=== PATIENT | female | born 1980 | race Caucasian/White ===

== ENCOUNTER 2018-12-27 21:46 | Observation (INO) | payer MEDICAID, SELFPAY ==
[2018-12-27 21:49] VITALS: BP 138/91; PULSE 111; RESP 24; TEMP 36.9; O2SAT 95; BMI 35.3
[2018-12-27 21:59] VITALS: BP 142/93; PULSE 110; RESP 20; O2SAT 98
--- NOTE | 2018-12-27 22:01 | RAD_ITS ---
STUDY: X-RAY CHEST REASON FOR EXAM: Female, 38 years old. Increasing shortness of breath. History of recent influenza and pneumonia on a ventilator in September 09, 2018. TECHNIQUE: 1 view COMPARISON: None. FINDINGS: Moderate elevation of the right diaphragm with mild atelectatic changes at the right lung base. Otherwise negative for major consolidation or focal atelectasis. Negative for substantial pleural effusion. Normal size heart. Normal mediastinum and masha. Normal visualized pulmonary arteries. Normal visualized aortic arch and descending thoracic aorta. Normal visualized thoracic spine. Normal visualized ribs, clavicles, and shoulders. There is no demonstrated abnormality of the visualized soft tissue structures of the upper abdomen. RAD/Chest 1 View (Portable) IMPRESSION: Moderate elevation of the right diaphragm with mild atelectatic changes at the right lung base. Otherwise negative for major consolidation, focal atelectasis, cardiomegaly or substantial pleural effusion. Electronically Signed: Sylvia Ridley MD at 22:25 EDT , Service support ,
--- NOTE | 2018-12-27 22:01 | EKG12_ITS ---
Test Reason : Blood Pressure : / mmHG Vent. Rate : 105 BPM Atrial Rate : 105 BPM P-R Int : 126 ms QRS Dur : 082 ms QT Int : 344 ms P-R-T Axes : 025 029 037 degrees QTc Int : 454 ms Sinus tachycardia Possible Left atrial enlargement Borderline ECG Confirmed by WALI POLANCO ([id number]), editor farm journal MENDEZ HEADLEY ([id number]) on 12/31/2018 2:04:35 PM Referred By: Lamar Lyon Confirmed By:WALI POLANCO
--- NOTE | 2018-12-27 22:31 | ED.DCSUM_ITS ---
- ER Visit Summary Date of Service: 12/27/18 Chief Complaint: Shortness of breath History of Present Illness: The patient is a 38 F presenting with shortness of breath. Patient states that this has been ongoing and progressively worsening over the past week. She has had a productive cough. She denies fever. Denies chest pain. Patient was admitted in August of this year for influenza in [place]. She developed a secondary pneumonia. She then developed respiratory failure and was on a ventilator. She had a cardiac arrest and was put on ECMO and dialysis. She was trached during the hospitalization. She was admitted for several months. She went to rehab. She was discharged from rehab 2 weeks ago. She has now moved to [place]. She does not have a primary care physician. She has been using someone else's oxygen at home. Her shortness of breath is worsened with exertion. She has a history of asthma. Physical Examination: Vitals are stable. Heart rate 111, respiratory rate 24. Patient is afebrile. Alert no acute distress. HEENT exam is unremarkable. Neck is supple. Lungs are diminished with expiratory wheezing bilaterally. Heart is regular and tachycardic Abdomen is soft nontender nondistended. Extremities are unremarkable. No edema Skin is warm and dry. No focal neurologic deficit. Remainder of exam is unremarkable. Emergency Department Course and Treatment: Patient was given albuterol, Atrovent aerosols. EKG is sinus tachycardia rate of 105. Chest x-ray shows moderate elevation of the right diaphragm with mild atelectatic changes at the right lung base. Otherwise negative for major consolidation, focal atelectasis, cardiomegaly or substantial pleural effusion. CBC normal except hemoglobin 10.7. Chemistries normal except for creatinine 1.26. Troponin is negative. Lactic acid is normal. D-dimer is 0.54. Patient was given IV fluids. CTA chest was obtained and shows grossly negative for pulmonary embolus somewhat limited secondary to motion artifact particularly at the lung bases. Normal thoracic aorta. Shotty lymph nodes of the middle mediastinum, AP window and hilar areas. Volume loss in the right upper lobe with linear areas of atelectasis or scarring in the apex. Nonspecific patchy groundglass changes. Motion artifact at the bases. Negative for substantial area of dense consolidation or pleural effusion. Patient was given Solu-Medrol IV. On repeat evaluation, her lungs are clear to auscultation bilaterally. She is on 2 L nasal cannula oxygen. Discussed with Dr. Lyon for admission. Disposition: Admission Impression: Asthma exacerbation This note was generated with [employer] dictation software. It may contain incorrect words, spelling, and punctuation that were not noted in review of the chart prior to signing ED Disposition - Plan for ED Patient: Referrals: Care Physician,No Primary [Primary Care Provider] -
[2018-12-27 22:43] LABS: Absolute Lymphocyte Count 2.28 X10^3/ul (0.83-4.51); Absolute Neutrophil Count 5.2 X10^3/uL (2.0-7.7); Basophil# 0.04 X10^3/uL; Basophil% 0.5 % (0-1); Eosinophil# 0.27 X10^3/uL; Eosinophils% 3.1 % (0-5); Hematocrit 33.7 % (37-47); Hemoglobin 10.7 g/dl (12.0-15.0); Lymphocyte # 2.28 X10^3/ul (4.0); Lymphocyte % 26.5 % (19-41); Mean Corp Hgb Conc 31.8 g/gl (32-36); Mean Corpuscular Hgb 27.4 pg (27.0-32.0); Mean Corpuscular Volume 86.2 fL (81-99); Mean Platelet Vol. 9.6 fl (6.2-12.0); Monocyte# 0.81 X10^3/uL; Monocyte% 9.4 % (0-10); Neutrophil # 5.18 X10^3/uL (2.7-7.7); Neutrophil % 60.3 % (47-70); Platelet Count 411 K/mm3 (150-450); RBC Distribution Width CV 14.4 % (11.6-14.6); RBC Distribution Width SD 43.8 fl (35.1-43.9); Red Blood Count 3.91 M/mm3 (4.2-5.4); White Blood Count 8.6 K/mm3 (4.4-11.0)
[2018-12-27 22:45] VITALS: PULSE 107; RESP 18
[2018-12-27 22:45] LABS: POSITIVE COUNT NO; POSITIVE DIFFERENTIAL NO; POSITIVE MORPHOLOGY NO
[2018-12-27 22:56] VITALS: BP 125/77; PULSE 99; RESP 18; TEMP 36.9; O2SAT 98
[2018-12-27 22:58] LABS: Anion Gap 6 (5-15); BUN 10 mg/dL (7-18); BUN/Creat Ratio 7.9 RATIO (10-20); Calcium,Total 8.7 mg/dL (8.5-10.1); Chloride 105 mmol/L (98-107); Creatinine, Serum 1.26 mg/dL (0.55-1.02); EST Glomerular Filtration Rate 50 mL/min (>60); Est Glom Filt Rate - Afr Amer 61 mL/min (>60); Estimated Creatinine Clearance 52.28 ml/min; Glucose 111 mg/dL (74-106); Potassium 3.7 mmol/L (3.5-5.1); Sodium Level 137 mmol/L (136-145)
[2018-12-27 23:05] LABS: D-Dimer Quantitative (DVT/PE) 0.54 FEU/ug/m (0.27-0.49)
--- NOTE | 2018-12-27 23:06 | CT_ITS ---
STUDY: CTA CHEST REASON FOR EXAM: Female, 38 years old. Shortness of breath and elevated d-dimer. Recent history of influenza and pneumonia. RADIATION DOSAGE (If Supplied By Facility): CTDIvol = ( 10.28 ) mGy, DLP = ( 482.58 ) mGycm TECHNIQUE: The examination was performed with the intravenous administration of 100ML IV Isovue 370. Post-processing of the angiographic images was performed, with multiplanar reformation and 3D reconstruction. Individualized dose optimization techniques were used for this CT. COMPARISON: None. FINDINGS: Limited for evaluation of the lower lung zone secondary to motion artifact. Normal enhancement of the main pulmonary artery and right and left pulmonary arteries. Normal enhancement of the bilateral peripheral pulmonary arteries. There is no demonstrated pulmonary embolism. Normal thoracic aorta and visualized great vessels. There is no demonstrated aortic dissection. Normal heart and pericardium. Shotty 1 cm lymph nodes of the middle mediastinum and aortopulmonary window. Shotty bilateral hilar lymph nodes. Normal visualized trachea and bronchi. Mild generalized volume loss of the right upper lobe area multiple apical areas of linear scarring or atelectasis of the right upper lobe. Otherwise, patchy mild nonspecific sclerotic areas of groundglass opacity. Limited evaluation of the lung bases secondary to motion artifact. Generally negative for major area of consolidation or pleural effusion. Elevation of the right diaphragm. Normal chest wall structures. Mild degenerative changes of the thoracic spine. Normal visualized upper abdomen. CT/CTA Chest W/WO Contrast IMPRESSION: Grossly negative for pulmonary embolus somewhat limited secondary to motion artifact particularly at the lung bases. Normal thoracic aorta. Shotty lymph nodes of the middle mediastinum, AP window and hilar areas. Volume loss in the right upper lobe with linear areas of atelectasis or scarring in the apex. Nonspecific patchy groundglass changes. Motion artifact at the bases. Negative for substantial area of dense consolidation or pleural effusion. Electronically Signed: Sylvia Ridley MD at 0:01 EDT , Service support ,
[2018-12-27] MEDS: Ipratropium/Albuterol Sulfate 3 ML AMPUL.NEB INHALATION (23:10)
[2018-12-27] MEDS: Albuterol 2.5 MG/3 ML VIAL.NEB. INHALATION ×2 (23:10)
[2018-12-27 23:12] VITALS: PULSE 111; RESP 18
[2018-12-28] VITALS (7 sets, daily range): BP systolic 126–147; BP diastolic 74–93; PULSE 92–114; RESP 18–21; TEMP 36.9–37; O2SAT 88–100; BMI 35.7; BMI 35.8
[2018-12-28] MEDS: 0.9% Normal Saline 1,000 ML 999 ML IV (01:09)
--- NOTE | 2018-12-28 01:18 | HP.PCM_ITS ---
Problem List (1) Asthma exacerbation Status: Acute Qualifiers: Asthma severity: unspecified severity Asthma persistence: unspecified Qualified Code(s): J45.901 - Unspecified asthma with (acute) exacerbation (2) Obesity (BMI 30-39.9) Status: Chronic (3) MAGDALENA (acute kidney injury) Status: Resolved (4) Cardiac arrest Status: Resolved (5) Influenza Status: Resolved (6) Respiratory failure Status: Resolved Qualifiers: Chronicity: unspecified Respiratory failure complication: unspecified whether with hypoxia or hypercapnia Qualified Code(s): J96.90 - Respiratory failure, unspecified, unspecified whether with hypoxia or hypercapnia (7) History of tracheostomy Status: Resolved (8) Personal history of ECMO Status: Resolved History of Present Illness Date of Admission: 12/28/18 Chief Complaint: Dyspnea, cough, wheezing x 1 week. The patient is a 38 y/o F w/ PMHx: Obesity, Asthma with notable history of prolonged admission starting in August of this year secondary to influenza with respiratory failure with subsequent pneumonia requiring prolonged ventilator support complicated by cardiac arrest with placement on the ECMO with noted dialysis needs secondary to acute kidney injury with from history per patient eventual resolution of all these things and transition to rehabilitation for therapies with discharge from this facility in [place] approximately 2 weeks prior to current presentation, recently moved to [place] to live with her cousin noting that she has had ongoing dyspnea, cough not markedly productive with wheezing worsening over the last week, using a friend's oxygen with no home medications but notes she has a nebulizer machine that she has not yet set up. ED work-up included T 98.5, heart rate 111, BP 138/91, respiratory rate 24, 95% on room air, CBC with WBC 8.6, hemoglobin 10.7, platelet 411 without market shift, d-dimer 0.54, BMP with BUN/creatinine 10/1.26, glucose 111, lactic acid 1.0, troponin less than 0.015, EKG with sinus tachycardia with no acute evidence of ischemia, chest x-ray with moderate elevation right diaphragm with mild atelectatic changes at the right base, CTPA grossly negative for acute pulmonary emboli although limited secondary to motion artifact particularly at bases, normal thoracic aorta, shotty lymph nodes of the middle mediastinum, AP window and hilar areas, volume loss right upper lobe with linear areas of atelectasis or scarring in the apex, nonspecific patchy groundglass changes, motion artifact at bases, no evidence of substantial area of dense consolidation or pleural effusion. In the ED patient ministered normal saline, Solu-Medrol, DuoNeb and albuterol therapies. Per discussion with ED physician patient was initially very tachypneic with increased breathing, tight and wheezing on examination with improvement following aerosol therapies. Past Medical History Past Medical History (Chronic Problems): Chronic Problems Obesity (BMI 30-39.9) (Chronic) Allergies No Known Allergies Allergy (Verified 12/27/18 21:53) Home Medications: Ambulatory Orders Medication Instructions Recorded NK 12/27/18 Surgical History: - - Right knee arthroscopic surgery, tonsillectomy, recent tracheostomy and access for ECMO. 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 Smoking Status: Never smoker - Denies any smoking history. Tobacco Use: Non-smoker Alcohol: None Drugs: None - *Family History Maternal History Items: - - Patient states she does not know any of her maternal or paternal family history. Paternal History Items: - - Patient states she does not know any of her maternal or paternal family history. Review of Systems Constitutional: Reports: Malaise, Weakness, Fatigue. Denies: Chills, Fever, Weight Change HEENT: Reports: Post Nasal Drip, Sinus Drainage. Denies: Head Aches Cardiovascular: Denies: Chest Pain, Palpitations Respiratory: Reports: Cough, Shortness of Breath, Shortness of breath at rest, Shortness of breath upon exertion, Sputum production, Wheezing Gastrointestinal: Denies: Abdominal Pain, Nausea, Vomiting Genitourinary: Denies: Dysuria Musculoskeletal: Reports: Back Pain, Joint Pain. Denies: Joint Tenderness Skin: Reports: Skin Changes. Denies: Rash, Wounds Neurological: Denies: Numbness, Tingling, Focal weakness Psychiatric: Denies: Anxiety, Depression, Homicidal Ideations, Suicidal Ideations Hematologic/ Lymphatic: Denies: Easy Bruising, Easy Bleeding VTE Information - Inpt Only VTE Present on Admission: No VTE Mechan Device Prophylaxis: SCD's VTE Pharm Prophylaxis ordered?: Yes Patient Problems: Active and Suspected Problems Asthma exacerbation (Acute) Subjective: Seated upright in the ED bed, fatigued appearance, notes feeling remarkably improved since initial ED interventions, wheezing lessened, respiratory rate decreased. Objective: Physical Examination: General: awake, alert, oriented x 3 and cooperative, seated upright in bed the ED bed, fatigued appearance, respiratory status improved, respiratory rate normalized, wheezing subsided, oxygenation requirements decreased. Skin: normal color, turgor, no icterus, cyanosis. HEENT: AT/NC, EOMI, PERRLA, mildly dry MM, no carotid bruits or JVD noted. Lungs: Diffusely diminished breath sounds, greater bases, improved respiratory status with decreased respiratory rate, previously noted to be very tight and wheezing throughout, currently wheezing resolved, no rales or rhonchi noted. Heart: Regular rate and rhythm; no gallop, rub audible. Abdomen: soft, obese, NTTP, ND, normal BS, no HSM. Extremities: no cyanosis, clubbing, or edema. Neurological: patient awake, alert, oriented x 3; cognitive function intact; pupils equally reactive to light and accomodation; cranial nerves II-XII grossly normal, moving all 4 extremities, no focal deficits, strength severely global decrease secondary to acute presentation. Psychiatric: affect appears fatigued, no acute evidence of depressive or anxiety feelings. - Physical Exam Vital Signs Temp Pulse Resp BP Pulse Ox 98.4 F 111 H 18 125/77 H 98 12/27/18 22:56 12/27/18 23:12 12/27/18 23:12 12/27/18 22:56 12/27/18 22:56 Oxygen Flow Rate (L/min) 2 Oxygen Delivery Method Room Air Weight: 205 lb 14.588 oz Body Mass Index (BMI) 35.3 Laboratory Tests Past 24 Hrs 12/27/18 12/27/18 12/27/18 22:28 22:28 22:28 WBC 8.6 RBC 3.91 L Hgb 10.7 L Hct 33.7 L MCV 86.2 MCH 27.4 MCHC 31.8 L RDW 14.4 RDW Differential 43.8 Plt Count 411 MPV 9.6 Immature Gran % (Auto) 0.200 Neut % (Auto) 60.3 Lymph % (Auto) 26.5 [place] % (Auto) 9.4 Eos % (Auto) 3.1 Baso % (Auto) 0.5 Absolute Neuts (auto) 5.2 Absolute Lymphs (auto) 2.28 Total Counted Not Reportable D-Dimer Quant (PE/DVT) 0.54 H* Sodium 137 Potassium 3.7 Chloride 105 Carbon Dioxide 26.0 Anion Gap 6 BUN 10 Creatinine 1.26 H Estim Creat Clear Calc 52.28 Est GFR (MDRD) Af Amer 61 Est GFR (MDRD) Non-Af 50 L BUN/Creatinine Ratio 7.9 L Glucose 111 H Lactic Acid Calcium 8.7 Troponin I < 0.015 12/27/18 22:28 WBC RBC Hgb Hct MCV MCH MCHC RDW RDW Differential Plt Count MPV Immature Gran % (Auto) Neut % (Auto) Lymph % (Auto) [place] % (Auto) Eos % (Auto) Baso % (Auto) Absolute Neuts (auto) Absolute Lymphs (auto) Total Counted D-Dimer Quant (PE/DVT) Sodium Potassium Chloride Carbon Dioxide Anion Gap BUN Creatinine Estim Creat Clear Calc Est GFR (MDRD) Af Amer Est GFR (MDRD) Non-Af BUN/Creatinine Ratio Glucose Lactic Acid 1.0 Calcium Troponin I Assessment/Plan All Active Problems Asthma exacerbation (Acute) MAGDALENA (acute kidney injury) (Resolved) Cardiac arrest (Resolved) Influenza (Resolved) Respiratory failure (Resolved) History of tracheostomy (Resolved) Personal history of ECMO (Resolved) The patient is a 38 y/o F w/ PMHx: Obesity, Asthma, Recent prolonged admission w/ resp failure, influenza, PNA requiring ECMO w/ eventual trach, MAGDALENA requiring HD w/ transition to rehabilitation ~ 2 weeks prior, recently moved to [place] with ongoing dyspnea, cough not markedly productive with wheezing worsening over the last week. (1) Acute on Chronic Asthma exacerbation completed by recent history of influenza, pneumonia, prolonged ventilation status post trach with ECMO needs: ED work-up included T 98.5, heart rate 111, BP 138/91, respiratory rate 24, 95% on room air, CBC with WBC 8.6, hemoglobin 10.7, platelet 411 without market shift, d-dimer 0.54, BMP with BUN/creatinine 10/1.26, glucose 111, lactic acid 1.0, troponin less than 0.015, EKG with sinus tachycardia with no acute evidence of ischemia, chest x-ray with moderate elevation right diaphragm with mild atelectatic changes at the right base, CTPA grossly negative for acute pulmonary emboli although limited secondary to motion artifact particularly at bases, normal thoracic aorta, shotty lymph nodes of the middle mediastinum, AP window and hilar areas, volume loss right upper lobe with linear areas of atelectasis or scarring in the apex, nonspecific patchy groundglass changes, motion artifact at bases, no evidence of substantial area of dense consolidation or pleural effusion. Will admit to [place], maintain on oxygen with wean as tolerated to room air, continue ATC duonebs, PRN albuterol, IV methylprednisolone, HOB, IS parameters, given afebrile, CBC with no WBC elevation or left shift and suspect CT findings likely secondary to recent prolonged admission will defer antibiotics initially. Requested sputum culture, respiratory viral panel, antigens. Patient will need to establish with pulmonary and given recent pro longed admissions and complicated pulmonary history requested Dr. Fall evaluation of patient. Records requested. (2) Recent MAGDALENA Requiring HD: Resolved per patient, admission BUN/creatinine 05/21.26, gently hydrating, repeat BMP in a.m, records requested as unclear last renal function following discharge to rehab. Records requested. (3) Obesity: Weight loss and lifestyle changes encouraged. (4) DVT Prophylaxis: SCDs, lovenox. Code Visit Inpatient E&M: 04774 Init Hosp L3
[2018-12-28] MEDS: MethylPREDNISolone 125 MG/2 ML Vial IV (01:39)
[2018-12-28 03:01] LABS: Magnesium 1.7 mg/dL (1.6-2.6)
[2018-12-28 03:05] LABS: Bedside Glucose 111 mg/dL (70-110)
[2018-12-28] MEDS: 0.9% Normal Saline 1,000 ML 125 ML IV (03:23)
[2018-12-28] MEDS: guaiFENesin 10 ML UDC (200MG/10ML) 20 ML PO ×2 (05:25→14:21)
[2018-12-28 05:37] LABS: Absolute Lymphocyte Count 0.72 X10^3/ul (0.83-4.51); Absolute Neutrophil Count 7.3 X10^3/uL (2.0-7.7); Basophil# 0.02 X10^3/uL; Basophil% 0.2 % (0-1); Eosinophil# 0.01 X10^3/uL; Eosinophils% 0.1 % (0-5); Hematocrit 35.2 % (37-47); Hemoglobin 10.9 g/dl (12.0-15.0); Lymphocyte # 0.72 X10^3/ul (4.0); Lymphocyte % 8.7 % (19-41); Mean Corpuscular Hgb 26.8 pg (27.0-32.0); Mean Corpuscular Volume 86.7 fL (81-99); Mean Platelet Vol. 9.6 fl (6.2-12.0); Monocyte# 0.19 X10^3/uL; Monocyte% 2.3 % (0-10); Neutrophil # 7.29 X10^3/uL (2.7-7.7); Neutrophil % 88.5 % (47-70); Platelet Count 417 K/mm3 (150-450); RBC Distribution Width CV 14.4 % (11.6-14.6); RBC Distribution Width SD 44.1 fl (35.1-43.9); Red Blood Count 4.06 M/mm3 (4.2-5.4); White Blood Count 8.3 K/mm3 (4.4-11.0)
[2018-12-28 05:38] LABS: POSITIVE COUNT NO; POSITIVE DIFFERENTIAL NO; POSITIVE MORPHOLOGY NO
[2018-12-28 05:58] LABS: Anion Gap 9 (5-15); BUN 9 mg/dL (7-18); BUN/Creat Ratio 6.4 RATIO (10-20); Calcium,Total 8.7 mg/dL (8.5-10.1); Chloride 107 mmol/L (98-107); EST Glomerular Filtration Rate 45 mL/min (>60); Est Glom Filt Rate - Afr Amer 54 mL/min (>60); Estimated Creatinine Clearance 47.05 ml/min; Glucose 135 mg/dL (74-106); Potassium 3.8 mmol/L (3.5-5.1); Sodium Level 139 mmol/L (136-145)
[2018-12-28] MEDS: Ipratropium/Albuterol Sulfate 3 ML AMPUL.NEB INHALATION ×2 (07:02→11:09)
--- NOTE | 2018-12-28 07:09 | PCM.CONS.PUL ---
Reason for Consult Date of Consultation: 12/28/18 Reason for Consultation: Asthma exacerbation History of Present Illness: The patient is a 38-year-old female, with a history as outlined below, who presented to the emergency department on December 27 with complaints of shortness of breath and productive cough. The patient reports a history of asthma, which was initially diagnosed around the age of 15. Up until approximately 2 to 3 weeks ago, the patient was residing in [place]. Sometime in August, the patient became ill and was subsequently diagnosed with influenza. The patient went on to develop a significant respiratory infection and severe hypoxemic respiratory failure, requiring ICU admission. In fact, the patient eventually went on to develop ARDS and required ECMO support. She underwent tracheostomy and spent a total of approximately 3 months in the hospital and in follow-up rehab. She was just decannulated 2 to 3 weeks ago. The patient has since relocated back to [place] to be closer to her family. She is currently using one of her friends inhalers in the form of Dulera. Prior to her most recent acute illness, she reported that her asthma was under good control. Her main complaints are for that of exertional shortness of breath and intermittent wheezing. She denies a history of allergic rhinitis. She does report that cigarette smoke is a trigger for decompensation in her breathing quality. She has never been formally evaluated by a lead software development engineer, nor has she ever undergone pulmonary function testing previously. She is a lifelong non-smoker. On presentation to the emergency department, the patient was noted to be afebrile, tachycardic and tachypneic. Laboratory evaluation revealed no evidence of a leukocytosis. The patient was anemic with a hemoglobin of 10.7 g/dL. D-dimer was elevated to 0.54. Creatinine was increased to 1.26. Serum lactate was within normal limits. Troponin was negative. Plain film chest x-ray revealed evidence of an elevated right hemidiaphragm with associated atelectasis. A CTA chest was then obtained which was negative for the presence for pulmonary emboli. There was nonspecific patchy groundglass changes without radiographic evidence of a significant focal infiltrate. The patient was given supplemental IV fluid hydration. In addition, she was provided with IV Solu-Medrol and bronchodilators. She was subsequently admitted to the medical surgical floor for ongoing management. Past Medical History Past Medical History (Chronic Problems): Chronic Problems Obesity (BMI 30-39.9) (Chronic) Allergies No Known Allergies Allergy (Verified 12/27/18 21:53) Home Medications: Ambulatory Orders Medication Instructions Recorded Albuterol Inhaler [Ventolin Hfa] 1 - 2 puff INHALATION Q4H PRN PRN 12/28/18 #1 inhaler Budesonide/Formoterol Fumarate 2 puff IH BID #1 hfa.aer.ad 12/28/18 [Symbicort 80-4.5 Mcg Inhaler] Prednisone 2 tab PO DAILY #10 tablet 12/28/18 Surgical History: - - Right knee arthroscopic surgery, tonsillectomy, recent tracheostomy and access for ECMO. 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 Smoking Status: Never smoker - Denies any smoking history. Tobacco Use: Non-smoker Alcohol: None Drugs: None - *Family History Maternal History Items: - - Patient states she does not know any of her maternal or paternal family history. Paternal History Items: - - Patient states she does not know any of her maternal or paternal family history. Review of Systems Constitutional: Denies: Chills, Fever Eyes: Denies: Blurred vision, Double vision HEENT: Denies: Head Aches, Sinus Congestion, Sinus Drainage Cardiovascular: Reports: Chest Tightness Respiratory: Reports: Cough, Shortness of Breath, Shortness of breath upon exertion, Wheezing Gastrointestinal: Denies: Abdominal Pain, Nausea, Vomiting Genitourinary: Denies: Dysuria Musculoskeletal: Denies: Joint Pain, Joint Tenderness Skin: Denies: Rash, Wounds Neurological: Denies: Numbness, Tingling, Focal weakness Psychiatric: Reports: Anxiety Hematologic/ Lymphatic: Reports: Anemia Patient Problems: Active and Suspected Problems Asthma exacerbation (Acute) Objective: The patient's most recent lab work, culture data and imaging studies have all been personally reviewed. Strep and urine Legionella antigens were negative. Respiratory viral panel is pending. - Physical Exam General: Alert, Oriented x3, Cooperative, No apparent distress HEENT: Atraumatic, PERRLA, Normocephalic Oral: No Gingival or Mucosal Lesions/ Ulcerations Neck: Supple, No Nodes, Trachea Midline Lungs: - - Diminished air movement in the bases bilaterally, right greater than left. No appreciable wheezes, rales or rhonchi. Cardiovascular: Regular rate, Regular Rhythm, Normal S1, Normal S2, No murmurs Abdomen: Bowel Sounds Present, Soft, Non Tender, Obese Extremities: No clubbing, No cyanosis, No edema Skin: No breakdown Musculoskeletal: No Tenderness to Palpation of Joints or Extremities Lymphatic: No Cervical, Supraclavicular, or Inguinal Adenopathy Neurological: Cranial nerves II-XII grossly intact, Neuro grossly intact Psych/Mental Status: Normal Affect, Appropriate Vital Signs Temp Pulse Resp BP Pulse Ox 98.6 F 96 18 130/87 H 100 12/28/18 02:35 12/28/18 02:35 12/28/18 02:35 12/28/18 02:35 12/28/18 02:35 Oxygen Flow Rate (L/min) 2 Oxygen Delivery Method Nasal Cannula Weight: 208 lb 6 oz Body Mass Index (BMI) 35.7 Intake and Output for Last 24 Hours 12/26/18 12/27/18 12/28/18 23:59 23:59 23:59 Intake Total 452 / 452 Balance 452 / 452 Microbiology Past 72 Hours 12/28/18 04:00 Streptococcus pneumoniae Antigen (M - Final Urine, Clean Catch 12/28/18 04:00 Legionella Antigen - Final Urine, Clean Catch Laboratory Tests Past 24 Hrs 12/27/18 12/27/18 12/27/18 22:28 22:28 22:28 WBC 8.6 RBC 3.91 L Hgb 10.7 L Hct 33.7 L MCV 86.2 MCH 27.4 MCHC 31.8 L RDW 14.4 RDW Differential 43.8 Plt Count 411 MPV 9.6 Immature Gran % (Auto) 0.200 Neut % (Auto) 60.3 Lymph % (Auto) 26.5 [place] % (Auto) 9.4 Eos % (Auto) 3.1 Baso % (Auto) 0.5 Absolute Neuts (auto) 5.2 Absolute Lymphs (auto) 2.28 Total Counted Not Reportable D-Dimer Quant (PE/DVT) 0.54 H* Sodium 137 Potassium 3.7 Chloride 105 Carbon Dioxide 26.0 Anion Gap 6 BUN 10 Creatinine 1.26 H Estim Creat Clear Calc 52.28 Est GFR (MDRD) Af Amer 61 Est GFR (MDRD) Non-Af 50 L BUN/Creatinine Ratio 7.9 L Glucose 111 H Lactic Acid Calcium 8.7 Magnesium Troponin I < 0.015 12/27/18 12/27/18 12/28/18 22:28 22:28 05:20 WBC RBC Hgb Hct MCV MCH MCHC RDW RDW Differential Plt Count MPV Immature Gran % (Auto) Neut % (Auto) Lymph % (Auto) [place] % (Auto) Eos % (Auto) Baso % (Auto) Absolute Neuts (auto) Absolute Lymphs (auto) Total Counted D-Dimer Quant (PE/DVT) Sodium 139 Potassium 3.8 Chloride 107 Carbon Dioxide 23.0 Anion Gap 9 BUN 9 Creatinine 1.40 H Estim Creat Clear Calc 47.05 Est GFR (MDRD) Af Amer 54 L Est GFR (MDRD) Non-Af 45 L BUN/Creatinine Ratio 6.4 L Glucose 135 H Lactic Acid 1.0 Calcium 8.7 Magnesium 1.7 Troponin I 12/28/18 05:20 WBC 8.3 RBC 4.06 L Hgb 10.9 L Hct 35.2 L MCV 86.7 MCH 26.8 L MCHC 31.0 L RDW 14.4 RDW Differential 44.1 H Plt Count 417 MPV 9.6 Immature Gran % (Auto) 0.200 Neut % (Auto) 88.5 H Lymph % (Auto) 8.7 L [place] % (Auto) 2.3 Eos % (Auto) 0.1 Baso % (Auto) 0.2 Absolute Neuts (auto) 7.3 Absolute Lymphs (auto) 0.72 L Total Counted Not Reportable D-Dimer Quant (PE/DVT) Sodium Potassium Chloride Carbon Dioxide Anion Gap BUN Creatinine Estim Creat Clear Calc Est GFR (MDRD) Af Amer Est GFR (MDRD) Non-Af BUN/Creatinine Ratio Glucose Lactic Acid Calcium Magnesium Troponin I POC Glucose 12/28/18 02:57 POC Glucose 111 H Clinical Impression(s) from Imaging Studies Chest X-Ray 12/27/18 22:01 IMPRESSION: Moderate elevation of the right diaphragm with mild atelectatic changes at the right lung base. Otherwise negative for major consolidation, focal atelectasis, cardiomegaly or substantial pleural effusion. Electronically Signed: Sylvia Ridley MD at 22:25 EDT , Service support , Chest CTA 12/27/18 23:06 IMPRESSION: Grossly negative for pulmonary embolus somewhat limited secondary to motion artifact particularly at the lung bases. Normal thoracic aorta. Shotty lymph nodes of the middle mediastinum, AP window and hilar areas. Volume loss in the right upper lobe with linear areas of atelectasis or scarring in the apex. Nonspecific patchy groundglass changes. Motion artifact at the bases. Negative for substantial area of dense consolidation or pleural effusion. Electronically Signed: Sylvia Ridley MD at 0:01 EDT , Service support , Assessment/Plan All Active Problems Asthma exacerbation (Acute) MAGDALENA (acute kidney injury) (Resolved) Cardiac arrest (Resolved) Influenza (Resolved) Respiratory failure (Resolved) History of tracheostomy (Resolved) Personal history of ECMO (Resolved) RECOMMENDATIONS: 1. Continue bronchodilators as ordered. 2. Transition from IV steroids to prednisone 40 mg daily, with plans for a 5-day burst at discharge. 3. At discharge, please provide with prescriptions for Symbicort and as needed albuterol. 4. Perform walking oximetry study prior to consideration for discharge from the hospital. 5. Follow-up in the pulmonary medicine clinic next week on Monday at 1:15 PM, as scheduled. IMPRESSIONS: 1. Personal history of asthma with exacerbation The patient reports a history of asthma, initially diagnosed at the age of 15. She recently relocated here to the area following a prolonged hospitalization in [place], during which time, she was treated for ARDS secondary to influenza and actually required ECMO support. The patient did require eventual tracheostomy. However, she was decannulated 2 to 3 weeks ago. At this time, I do not suspect that the patient has an underlying pulmonary infectious process. I do think that it is reasonable to give the patient 5 mg of prednisone 40 mg daily at discharge. She does report that she is currently utilizing Dulera, which belongs to a friend of hers. At discharge, please provide the patient with a prescription for Symbicort and and as needed rescue inhaler. Perform walking oximetry study prior to consideration for discharge to ensure adequacy of oxygenation with exertion. I explained to the patient the importance of following up in the pulmonary medicine clinic so that baseline pulmonary function studies can be obtained. She is currently scheduled for a follow-up office visit on January 02 at 1:15 PM. 2. Personal history of ARDS secondary to influenza, requiring ECMO support Some of the radiographic findings noted on the patient's CT chest are likely the consequence of her recent pulmonary infectious process. I am also concerned that the patient may have an underlying component of posttraumatic stress disorder or anxiety from her prolonged ICU stay. 3. History of renal insufficiency, requiring hemodialysis Renal function appears stable at this time. Continue to monitor urine output accordingly. This note was generated with [employer] dictation software. It may contain incorrect words, spelling, and punctuation that were not noted in checking the note before signing. Code Visit Inpatient E&M: 79690 Init Hosp L3
--- NOTE | 2018-12-28 07:13 | CON.PCM_ITS ---
Reason for Consult Date of Consultation: 12/28/18 Reason for Consultation: Asthma exacerbation History of Present Illness: The patient is a 38-year-old female, with a history as outlined below, who presented to the emergency department on December 27 with complaints of shortness of breath and productive cough. The patient reports a history of asthma, which was initially diagnosed around the age of 15. Up until approximately 2 to 3 weeks ago, the patient was residing in [place]. Sometime in August, the patient became ill and was subsequently diagnosed with influenza. The patient went on to develop a significant respiratory infection and severe hypoxemic respiratory failure, requiring ICU admission. In fact, the patient eventually went on to develop ARDS and required ECMO support. She underwent tracheostomy and spent a total of approximately 3 months in the hospital and in follow-up rehab. She was just decannulated 2 to 3 weeks ago. The patient has since relocated back to [place] to be closer to her family. She is currently using one of her friends inhalers in the form of Dulera. Prior to her most recent acute illness, she reported that her asthma was under good control. Her main complaints are for that of exertional shortness of breath and intermittent wheezing. She denies a history of allergic rhinitis. She does report that cigarette smoke is a trigger for decompensation in her breathing quality. She has never been formally evaluated by a red hat engineer, nor has she ever undergone pulmonary function testing previously. She is a lifelong non-smoker. On presentation to the emergency department, the patient was noted to be afebrile, tachycardic and tachypneic. Laboratory evaluation revealed no evidence of a leukocytosis. The patient was anemic with a hemoglobin of 10.7 g/dL. D-dimer was elevated to 0.54. Creatinine was increased to 1.26. Serum lactate was within normal limits. Troponin was negative. Plain film chest x- ray revealed evidence of an elevated right hemidiaphragm with associated atelectasis. A CTA chest was then obtained which was negative for the presence for pulmonary emboli. There was nonspecific patchy groundglass changes without radiographic evidence of a significant focal infiltrate. The patient was given supplemental IV fluid hydration. In addition, she was provided with IV Solu- Medrol and bronchodilators. She was subsequently admitted to the medical surgical floor for ongoing management. Past Medical History Past Medical History (Chronic Problems): Chronic Problems Obesity (BMI 30-39.9) (Chronic) Allergies No Known Allergies Allergy (Verified 12/27/18 21:53) Home Medications: Ambulatory Orders Medication Instructions Recorded Albuterol Inhaler [Ventolin Hfa] 1 - 2 puff INHALATION Q4H PRN PRN 12/28/18 #1 inhaler Budesonide/Formoterol Fumarate 2 puff IH BID #1 hfa.aer.ad 12/28/18 [Symbicort 80-4.5 Mcg Inhaler] Prednisone 2 tab PO DAILY #10 tablet 12/28/18 Surgical History: - - Right knee arthroscopic surgery, tonsillectomy, recent tracheostomy and access for ECMO. 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 Smoking Status: Never smoker - Denies any smoking history. Tobacco Use: Non-smoker Alcohol: None Drugs: None - *Family History Maternal History Items: - - Patient states she does not know any of her maternal or paternal family history. Paternal History Items: - - Patient states she does not know any of her maternal or paternal family history. Review of Systems Constitutional: Denies: Chills, Fever Eyes: Denies: Blurred vision, Double vision HEENT: Denies: Head Aches, Sinus Congestion, Sinus Drainage Cardiovascular: Reports: Chest Tightness Respiratory: Reports: Cough, Shortness of Breath, Shortness of breath upon exertion, Wheezing Gastrointestinal: Denies: Abdominal Pain, Nausea, Vomiting Genitourinary: Denies: Dysuria Musculoskeletal: Denies: Joint Pain, Joint Tenderness Skin: Denies: Rash, Wounds Neurological: Denies: Numbness, Tingling, Focal weakness Psychiatric: Reports: Anxiety Hematologic/ Lymphatic: Reports: Anemia Patient Problems: Active and Suspected Problems Asthma exacerbation (Acute) Objective: The patient's most recent lab work, culture data and imaging studies have all been personally reviewed. Strep and urine Legionella antigens were negative. Respiratory viral panel is pending. - Physical Exam General: Alert, Oriented x3, Cooperative, No apparent distress HEENT: Atraumatic, PERRLA, Normocephalic Oral: No Gingival or Mucosal Lesions/ Ulcerations Neck: Supple, No Nodes, Trachea Midline Lungs: - - Diminished air movement in the bases bilaterally, right greater than left. No appreciable wheezes, rales or rhonchi. Cardiovascular: Regular rate, Regular Rhythm, Normal S1, Normal S2, No murmurs Abdomen: Bowel Sounds Present, Soft, Non Tender, Obese Extremities: No clubbing, No cyanosis, No edema Skin: No breakdown Musculoskeletal: No Tenderness to Palpation of Joints or Extremities Lymphatic: No Cervical, Supraclavicular, or Inguinal Adenopathy Neurological: Cranial nerves II-XII grossly intact, Neuro grossly intact Psych/Mental Status: Normal Affect, Appropriate Vital Signs Temp Pulse Resp BP Pulse Ox 98.6 F 96 18 130/87 H 100 12/28/18 02:35 12/28/18 02:35 12/28/18 02:35 12/28/18 02:35 12/28/18 02:35 Oxygen Flow Rate (L/min) 2 Oxygen Delivery Method Nasal Cannula Weight: 208 lb 6 oz Body Mass Index (BMI) 35.7 Intake and Output for Last 24 Hours 12/26/18 12/27/18 12/28/18 23:59 23:59 23:59 Intake Total 452 / 452 Balance 452 / 452 Microbiology Past 72 Hours 12/28/18 04:00 Streptococcus pneumoniae Antigen (M - Final Urine, Clean Catch 12/28/18 04:00 Legionella Antigen - Final Urine, Clean Catch Laboratory Tests Past 24 Hrs 12/27/18 12/27/18 12/27/18 22:28 22:28 22:28 WBC 8.6 RBC 3.91 L Hgb 10.7 L Hct 33.7 L MCV 86.2 MCH 27.4 MCHC 31.8 L RDW 14.4 RDW Differential 43.8 Plt Count 411 MPV 9.6 Immature Gran % (Auto) 0.200 Neut % (Auto) 60.3 Lymph % (Auto) 26.5 [place] % (Auto) 9.4 Eos % (Auto) 3.1 Baso % (Auto) 0.5 Absolute Neuts (auto) 5.2 Absolute Lymphs (auto) 2.28 Total Counted Not Reportable D-Dimer Quant (PE/DVT) 0.54 H* Sodium 137 Potassium 3.7 Chloride 105 Carbon Dioxide 26.0 Anion Gap 6 BUN 10 Creatinine 1.26 H Estim Creat Clear Calc 52.28 Est GFR (MDRD) Af Amer 61 Est GFR (MDRD) Non-Af 50 L BUN/Creatinine Ratio 7.9 L Glucose 111 H Lactic Acid Calcium 8.7 Magnesium Troponin I < 0.015 12/27/18 12/27/18 12/28/18 22:28 22:28 05:20 WBC RBC Hgb Hct MCV MCH MCHC RDW RDW Differential Plt Count MPV Immature Gran % (Auto) Neut % (Auto) Lymph % (Auto) [place] % (Auto) Eos % (Auto) Baso % (Auto) Absolute Neuts (auto) Absolute Lymphs (auto) Total Counted D-Dimer Quant (PE/DVT) Sodium 139 Potassium 3.8 Chloride 107 Carbon Dioxide 23.0 Anion Gap 9 BUN 9 Creatinine 1.40 H Estim Creat Clear Calc 47.05 Est GFR (MDRD) Af Amer 54 L Est GFR (MDRD) Non-Af 45 L BUN/Creatinine Ratio 6.4 L Glucose 135 H Lactic Acid 1.0 Calcium 8.7 Magnesium 1.7 Troponin I 12/28/18 05:20 WBC 8.3 RBC 4.06 L Hgb 10.9 L Hct 35.2 L MCV 86.7 MCH 26.8 L MCHC 31.0 L RDW 14.4 RDW Differential 44.1 H Plt Count 417 MPV 9.6 Immature Gran % (Auto) 0.200 Neut % (Auto) 88.5 H Lymph % (Auto) 8.7 L [place] % (Auto) 2.3 Eos % (Auto) 0.1 Baso % (Auto) 0.2 Absolute Neuts (auto) 7.3 Absolute Lymphs (auto) 0.72 L Total Counted Not Reportable D-Dimer Quant (PE/DVT) Sodium Potassium Chloride Carbon Dioxide Anion Gap BUN Creatinine Estim Creat Clear Calc Est GFR (MDRD) Af Amer Est GFR (MDRD) Non-Af BUN/Creatinine Ratio Glucose Lactic Acid Calcium Magnesium Troponin I POC Glucose 12/28/18 02:57 POC Glucose 111 H Clinical Impression(s) from Imaging Studies Chest X-Ray 12/27/18 22:01 IMPRESSION: Moderate elevation of the right diaphragm with mild atelectatic changes at the right lung base. Otherwise negative for major consolidation, focal atelectasis, cardiomegaly or substantial pleural effusion. Electronically Signed: Sylvia Ridley MD at 22:25 EDT , Service support , Chest CTA 12/27/18 23:06 IMPRESSION: Grossly negative for pulmonary embolus somewhat limited secondary to motion artifact particularly at the lung bases. Normal thoracic aorta. Shotty lymph nodes of the middle mediastinum, AP window and hilar areas. Volume loss in the right upper lobe with linear areas of atelectasis or scarring in the apex. Nonspecific patchy groundglass changes. Motion artifact at the bases. Negative for substantial area of dense consolidation or pleural effusion. Electronically Signed: Sylvia Ridley MD at 0:01 EDT , Service support , Assessment/Plan All Active Problems Asthma exacerbation (Acute) MAGDALENA (acute kidney injury) (Resolved) Cardiac arrest (Resolved) Influenza (Resolved) Respiratory failure (Resolved) History of tracheostomy (Resolved) Personal history of ECMO (Resolved) RECOMMENDATIONS: 1. Continue bronchodilators as ordered. 2. Transition from IV steroids to prednisone 40 mg daily, with plans for a 5- day burst at discharge. 3. At discharge, please provide with prescriptions for Symbicort and as needed albuterol. 4. Perform walking oximetry study prior to consideration for discharge from the hospital. 5. Follow-up in the pulmonary medicine clinic next week on Monday at 1:15 PM, as scheduled. IMPRESSIONS: 1. Personal history of asthma with exacerbation The patient reports a history of asthma, initially diagnosed at the age of 15. She recently relocated here to the area following a prolonged hospitalization in [place], during which time, she was treated for ARDS secondary to influenza and actually required ECMO support. The patient did require eventual tracheostomy. However, she was decannulated 2 to 3 weeks ago. At this time, I do not suspect that the patient has an underlying pulmonary infectious process. I do think that it is reasonable to give the patient 5 mg of prednisone 40 mg daily at discharge. She does report that she is currently utilizing Dulera, which belongs to a friend of hers. At discharge, please provide the patient with a prescription for Symbicort and and as needed rescue inhaler. Perform walking oximetry study prior to consideration for discharge to ensure adequacy of oxygenation with exertion. I explained to the patient the importance of following up in the pulmonary medicine clinic so that baseline pulmonary function studies can be obtained. She is currently scheduled for a follow-up office visit on January 02 at 1:15 PM. 2. Personal history of ARDS secondary to influenza, requiring ECMO support Some of the radiographic findings noted on the patient's CT chest are likely the consequence of her recent pulmonary infectious process. I am also concerned that the patient may have an underlying component of posttraumatic stress disorder or anxiety from her prolonged ICU stay. 3. History of renal insufficiency, requiring hemodialysis Renal function appears stable at this time. Continue to monitor urine output accordingly. This note was generated with [email or web address] dictation software. It may contain incorrect words, spelling, and punctuation that were not noted in checking the note before signing. Code Visit Inpatient E&M: 21273 Init Hosp L3
[2018-12-28] MEDS: Glucerna Shake 120 ML LIQUID PO (10:08)
[2018-12-28] MEDS: Enoxaparin 40 MG/0.4 ML Syringe SC (10:08)
--- NOTE | 2018-12-28 10:48 | DCINST_ITS ---
- Discharge Diagnoses Current Active Problems: Current Active and Chronic Problems Asthma exacerbation (Acute) Obesity (BMI 30-39.9) (Chronic) You will use the following diet at home:: No restrictions Discharge Activity: Return to Normal Activity Allergies/Adverse Reactions: Allergies No Known Allergies Allergy (Verified 12/27/18 21:53) Medications to take at Discharge Albuterol Inhaler [Ventolin Hfa] 1 - 2 puff INHALATION Q4H PRN PRN #1 inhaler 12/28/18 Budesonide/Formoterol Fumarate [Symbicort 80-4.5 Mcg Inhaler] 2 puff IH BID #1 hfa.aer.ad 12/28/18 Prednisone 2 tab PO DAILY #10 tablet 12/28/18 The following prescriptions were given: Albuterol Inhaler [Ventolin Hfa] 1 - 2 puff INHALATION Q4H PRN PRN #1 inhaler PRN Reason: Shortness Of Breath Prednisone 2 tab PO DAILY #10 tablet Budesonide/Formoterol Fumarate [Symbicort 80-4.5 Mcg Inhaler] 2 puff IH BID #1 hfa.aer.ad Primary Care Physician: Care Physician,No Primary [Primary Care Provider] - Test Results: Test results from this visit will be discussed in further detail at your follow- up appointment, if applicable. Please Follow Up With: Kevyn Jiménez MD When: 2 weeks Please Follow Up With: Dipak Fall DO When: 01/02/19 at 1:15 Proposed Discharge Date: 12/28/18
--- NOTE | 2018-12-28 10:48 | PCM.DC.SUM ---
Discharge Date and Diagnosis - Problem List Patient Problems: Active and Suspected Problems Asthma exacerbation (Acute) Date of Admission: 12/28/18 Date of Discharge: 12/28/18 - Primary Discharge Diagnosis Active and Suspected Problems Asthma exacerbation (Acute) - Secondary Discharge Diagnosis Chronic Problems Obesity (BMI 30-39.9) (Chronic) Hospital Course and Treatment Imaging Results: Clinical Impression(s) from Imaging Studies Chest X-Ray 12/27/18 22:01 IMPRESSION: Moderate elevation of the right diaphragm with mild atelectatic changes at the right lung base. Otherwise negative for major consolidation, focal atelectasis, cardiomegaly or substantial pleural effusion. Electronically Signed: Sylvia Ridley MD at 22:25 EDT , Service support , Chest CTA 12/27/18 23:06 IMPRESSION: Grossly negative for pulmonary embolus somewhat limited secondary to motion artifact particularly at the lung bases. Normal thoracic aorta. Shotty lymph nodes of the middle mediastinum, AP window and hilar areas. Volume loss in the right upper lobe with linear areas of atelectasis or scarring in the apex. Nonspecific patchy groundglass changes. Motion artifact at the bases. Negative for substantial area of dense consolidation or pleural effusion. Electronically Signed: Sylvia Ridley MD at 0:01 EDT , Service support , Dipak Fall, DO: pulmonology Operations: None Procedures: None Summary of Care Provided: The patient is a 38 year old F presents with acute shortness of breath. Patient was diagnosed with acute exacerbation of asthma and started on Solu-Medrol. Patient's hospitalization was uncomplicated and today, the patient is doing well enough to be discharged. Patient does have a complicated history where the patient developed what may have been influenza that devolved into ARDS, requiring ECMO, prone positioning and tracheostomy and PEG tube placement. Patient was in the hospital for 2 months and then rehab a month later and then had a while she was in rehab had her PEG tube and tracheostomy removed. Patient was in [place] at that time but most recently, patient has been brought up to [place] to have care with family as patient just had herself up in the [place] area. Patient was seen in consultation by pulmonology and just recommend just steroids for now and follow-up in their office. [] Patient Problems: Active and Suspected Problems Asthma exacerbation (Acute) - Physical Exam General: Alert, Cooperative, No apparent distress HEENT: Atraumatic, Normocephalic Oral: Moist Mucosa, No Gingival or Mucosal Lesions/ Ulcerations Lungs: Clear to auscultation, Normal air movement, No rhonchi, No wheeze Cardiovascular: Regular rate, Regular Rhythm, Normal S1, Normal S2, No murmurs Vital Signs Temp Pulse Resp BP Pulse Ox 36.9 C 114 H 18 126/84 H 98 12/28/18 10:03 12/28/18 10:03 12/28/18 10:03 12/28/18 10:03 12/28/18 10:03 Oxygen Flow Rate (L/min) 1 Oxygen Delivery Method Nasal Cannula Weight: 94.517 kg Body Mass Index (BMI) 35.7 Intake and Output for Last 24 Hours 12/26/18 12/27/18 12/28/18 23:59 23:59 23:59 Intake Total 452 / 452 Balance 452 / 452 Microbiology Past 72 Hours 12/28/18 04:00 Streptococcus pneumoniae Antigen (M - Final Urine, Clean Catch 12/28/18 04:00 Legionella Antigen - Final Urine, Clean Catch Laboratory Tests Past 24 Hrs 12/27/18 12/27/18 12/27/18 22:28 22:28 22:28 WBC 8.6 RBC 3.91 L Hgb 10.7 L Hct 33.7 L MCV 86.2 MCH 27.4 MCHC 31.8 L RDW 14.4 RDW Differential 43.8 Plt Count 411 MPV 9.6 Immature Gran % (Auto) 0.200 Neut % (Auto) 60.3 Lymph % (Auto) 26.5 [place] % (Auto) 9.4 Eos % (Auto) 3.1 Baso % (Auto) 0.5 Absolute Neuts (auto) 5.2 Absolute Lymphs (auto) 2.28 Total Counted Not Reportable D-Dimer Quant (PE/DVT) 0.54 H* Sodium 137 Potassium 3.7 Chloride 105 Carbon Dioxide 26.0 Anion Gap 6 BUN 10 Creatinine 1.26 H Estim Creat Clear Calc 52.28 Est GFR (MDRD) Af Amer 61 Est GFR (MDRD) Non-Af 50 L BUN/Creatinine Ratio 7.9 L Glucose 111 H Lactic Acid Calcium 8.7 Magnesium Troponin I < 0.015 12/27/18 12/27/18 12/28/18 22:28 22:28 05:20 WBC RBC Hgb Hct MCV MCH MCHC RDW RDW Differential Plt Count MPV Immature Gran % (Auto) Neut % (Auto) Lymph % (Auto) [place] % (Auto) Eos % (Auto) Baso % (Auto) Absolute Neuts (auto) Absolute Lymphs (auto) Total Counted D-Dimer Quant (PE/DVT) Sodium 139 Potassium 3.8 Chloride 107 Carbon Dioxide 23.0 Anion Gap 9 BUN 9 Creatinine 1.40 H Estim Creat Clear Calc 47.05 Est GFR (MDRD) Af Amer 54 L Est GFR (MDRD) Non-Af 45 L BUN/Creatinine Ratio 6.4 L Glucose 135 H Lactic Acid 1.0 Calcium 8.7 Magnesium 1.7 Troponin I 12/28/18 05:20 WBC 8.3 RBC 4.06 L Hgb 10.9 L Hct 35.2 L MCV 86.7 MCH 26.8 L MCHC 31.0 L RDW 14.4 RDW Differential 44.1 H Plt Count 417 MPV 9.6 Immature Gran % (Auto) 0.200 Neut % (Auto) 88.5 H Lymph % (Auto) 8.7 L [place] % (Auto) 2.3 Eos % (Auto) 0.1 Baso % (Auto) 0.2 Absolute Neuts (auto) 7.3 Absolute Lymphs (auto) 0.72 L Total Counted Not Reportable D-Dimer Quant (PE/DVT) Sodium Potassium Chloride Carbon Dioxide Anion Gap BUN Creatinine Estim Creat Clear Calc Est GFR (MDRD) Af Amer Est GFR (MDRD) Non-Af BUN/Creatinine Ratio Glucose Lactic Acid Calcium Magnesium Troponin I POC Glucose 12/28/18 02:57 POC Glucose 111 H Discharge Diet: No Restrictions Discharge Activity: Return to Normal Activity Call your doctor if you observe: Shortness of breath Home Medications: Medications to take at Discharge Albuterol Inhaler [Ventolin Hfa] 1 - 2 puff INHALATION Q4H PRN PRN #1 inhaler 12/28/18 Budesonide/Formoterol Fumarate [Symbicort 80-4.5 Mcg Inhaler] 2 puff IH BID #1 hfa.aer.ad 12/28/18 Prednisone 2 tab PO DAILY #10 tablet 12/28/18 Following Prescrptions Were Given to Patient: Albuterol Inhaler [Ventolin Hfa] 1 - 2 puff INHALATION Q4H PRN PRN #1 inhaler PRN Reason: Shortness Of Breath Prednisone 2 tab PO DAILY #10 tablet Budesonide/Formoterol Fumarate [Symbicort 80-4.5 Mcg Inhaler] 2 puff IH BID #1 hfa.aer.ad Primary Care Physician: Care Physician,No Primary [Primary Care Provider] - Please Follow Up With: Kevyn Jiménez MD When: 2 weeks Please Follow Up With: Dipak Fall DO When: 01/02/19 at 1:15 Disposition: Home Minutes spent on discharge:: 32 Patient Condition:: Good Medical Necessity - Tobacco Use Smoking Status: Never smoker - Denies any smoking history. Tobacco Use: Non-smoker Meaningful Use Info Meaningful Use Diagnoses (Choose all that apply): None applicable Code Visit OBSV E&M: 97251 Observation care discharge
--- NOTE | 2018-12-28 10:53 | DS.PCM_ITS ---
Discharge Date and Diagnosis - Problem List Patient Problems: Active and Suspected Problems Asthma exacerbation (Acute) Date of Admission: 12/28/18 Date of Discharge: 12/28/18 - Primary Discharge Diagnosis Active and Suspected Problems Asthma exacerbation (Acute) - Secondary Discharge Diagnosis Chronic Problems Obesity (BMI 30-39.9) (Chronic) Hospital Course and Treatment Imaging Results: Clinical Impression(s) from Imaging Studies Chest X-Ray 12/27/18 22:01 IMPRESSION: Moderate elevation of the right diaphragm with mild atelectatic changes at the right lung base. Otherwise negative for major consolidation, focal atelectasis, cardiomegaly or substantial pleural effusion. Electronically Signed: Sylvia Ridley MD at 22:25 EDT , Service support , Chest CTA 12/27/18 23:06 IMPRESSION: Grossly negative for pulmonary embolus somewhat limited secondary to motion artifact particularly at the lung bases. Normal thoracic aorta. Shotty lymph nodes of the middle mediastinum, AP window and hilar areas. Volume loss in the right upper lobe with linear areas of atelectasis or scarring in the apex. Nonspecific patchy groundglass changes. Motion artifact at the bases. Negative for substantial area of dense consolidation or pleural effusion. Electronically Signed: Sylvia Ridley MD at 0:01 EDT , Service support , Dipak Fall, DO: pulmonology Operations: None Procedures: None Summary of Care Provided: The patient is a 38 year old F presents with acute shortness of breath. Patient was diagnosed with acute exacerbation of asthma and started on Solu-Medrol. Patient's hospitalization was uncomplicated and today, the patient is doing well enough to be discharged. Patient does have a complicated history where the patient developed what may have been influenza that devolved into ARDS, requiring ECMO, prone positioning and tracheostomy and PEG tube placement. Patient was in the hospital for 2 months and then rehab a month later and then had a while she was in rehab had her PEG tube and tracheostomy removed. Patient was in [place] at that time but most recently, patient has been brought up to [place] to have care with family as patient just had herself up in the [place] area. Patient was seen in consultation by pulmonology and just recommend just steroids for now and follow-up in their office. [] Patient Problems: Active and Suspected Problems Asthma exacerbation (Acute) - Physical Exam General: Alert, Cooperative, No apparent distress HEENT: Atraumatic, Normocephalic Oral: Moist Mucosa, No Gingival or Mucosal Lesions/ Ulcerations Lungs: Clear to auscultation, Normal air movement, No rhonchi, No wheeze Cardiovascular: Regular rate, Regular Rhythm, Normal S1, Normal S2, No murmurs Vital Signs Temp Pulse Resp BP Pulse Ox 36.9 C 114 H 18 126/84 H 98 12/28/18 10:03 12/28/18 10:03 12/28/18 10:03 12/28/18 10:03 12/28/18 10:03 Oxygen Flow Rate (L/min) 1 Oxygen Delivery Method Nasal Cannula Weight: 94.517 kg Body Mass Index (BMI) 35.7 Intake and Output for Last 24 Hours 12/26/18 12/27/18 12/28/18 23:59 23:59 23:59 Intake Total 452 / 452 Balance 452 / 452 Microbiology Past 72 Hours 12/28/18 04:00 Streptococcus pneumoniae Antigen (M - Final Urine, Clean Catch 12/28/18 04:00 Legionella Antigen - Final Urine, Clean Catch Laboratory Tests Past 24 Hrs 12/27/18 12/27/18 12/27/18 22:28 22:28 22:28 WBC 8.6 RBC 3.91 L Hgb 10.7 L Hct 33.7 L MCV 86.2 MCH 27.4 MCHC 31.8 L RDW 14.4 RDW Differential 43.8 Plt Count 411 MPV 9.6 Immature Gran % (Auto) 0.200 Neut % (Auto) 60.3 Lymph % (Auto) 26.5 [place] % (Auto) 9.4 Eos % (Auto) 3.1 Baso % (Auto) 0.5 Absolute Neuts (auto) 5.2 Absolute Lymphs (auto) 2.28 Total Counted Not Reportable D-Dimer Quant (PE/DVT) 0.54 H* Sodium 137 Potassium 3.7 Chloride 105 Carbon Dioxide 26.0 Anion Gap 6 BUN 10 Creatinine 1.26 H Estim Creat Clear Calc 52.28 Est GFR (MDRD) Af Amer 61 Est GFR (MDRD) Non-Af 50 L BUN/Creatinine Ratio 7.9 L Glucose 111 H Lactic Acid Calcium 8.7 Magnesium Troponin I < 0.015 12/27/18 12/27/18 12/28/18 22:28 22:28 05:20 WBC RBC Hgb Hct MCV MCH MCHC RDW RDW Differential Plt Count MPV Immature Gran % (Auto) Neut % (Auto) Lymph % (Auto) [place] % (Auto) Eos % (Auto) Baso % (Auto) Absolute Neuts (auto) Absolute Lymphs (auto) Total Counted D-Dimer Quant (PE/DVT) Sodium 139 Potassium 3.8 Chloride 107 Carbon Dioxide 23.0 Anion Gap 9 BUN 9 Creatinine 1.40 H Estim Creat Clear Calc 47.05 Est GFR (MDRD) Af Amer 54 L Est GFR (MDRD) Non-Af 45 L BUN/Creatinine Ratio 6.4 L Glucose 135 H Lactic Acid 1.0 Calcium 8.7 Magnesium 1.7 Troponin I 12/28/18 05:20 WBC 8.3 RBC 4.06 L Hgb 10.9 L Hct 35.2 L MCV 86.7 MCH 26.8 L MCHC 31.0 L RDW 14.4 RDW Differential 44.1 H Plt Count 417 MPV 9.6 Immature Gran % (Auto) 0.200 Neut % (Auto) 88.5 H Lymph % (Auto) 8.7 L [place] % (Auto) 2.3 Eos % (Auto) 0.1 Baso % (Auto) 0.2 Absolute Neuts (auto) 7.3 Absolute Lymphs (auto) 0.72 L Total Counted Not Reportable D-Dimer Quant (PE/DVT) Sodium Potassium Chloride Carbon Dioxide Anion Gap BUN Creatinine Estim Creat Clear Calc Est GFR (MDRD) Af Amer Est GFR (MDRD) Non-Af BUN/Creatinine Ratio Glucose Lactic Acid Calcium Magnesium Troponin I POC Glucose 12/28/18 02:57 POC Glucose 111 H Discharge Diet: No Restrictions Discharge Activity: Return to Normal Activity Call your doctor if you observe: Shortness of breath Home Medications: Medications to take at Discharge Albuterol Inhaler [Ventolin Hfa] 1 - 2 puff INHALATION Q4H PRN PRN #1 inhaler 12/28/18 Budesonide/Formoterol Fumarate [Symbicort 80-4.5 Mcg Inhaler] 2 puff IH BID #1 hfa.aer.ad 12/28/18 Prednisone 2 tab PO DAILY #10 tablet 12/28/18 Following Prescrptions Were Given to Patient: Albuterol Inhaler [Ventolin Hfa] 1 - 2 puff INHALATION Q4H PRN PRN #1 inhaler PRN Reason: Shortness Of Breath Prednisone 2 tab PO DAILY #10 tablet Budesonide/Formoterol Fumarate [Symbicort 80-4.5 Mcg Inhaler] 2 puff IH BID #1 hfa.aer.ad Primary Care Physician: Care Physician,No Primary [Primary Care Provider] - Please Follow Up With: Kevyn Jiménez MD When: 2 weeks Please Follow Up With: Dipak Fall DO When: 01/02/19 at 1:15 Disposition: Home Minutes spent on discharge:: 32 Patient Condition:: Good Medical Necessity - Tobacco Use Smoking Status: Never smoker - Denies any smoking history. Tobacco Use: Non-smoker Meaningful Use Info Meaningful Use Diagnoses (Choose all that apply): None applicable Code Visit OBSV E&M: 98289 Observation care discharge
--- NOTE | 2018-12-28 11:31 | CASEMGMT ---
RN WILEY received update that patient requires oxygen at discharge and nebulizer. DIMPLE JAMA in to discuss DME companies and patient is agreeable to [facility]. Script received for oxygen and nebulizer and referral sent to [facility]. DIMPLE JAMA arranged for portable tank to be delivered to patient's room prior to discharge. Patient denied further needs at this time.
--- NOTE | 2018-12-28 14:15 | PCA ---
consent signed for release of medical records, faxed to [facility], [facility] in [facility] main line: [phone] fax number [phone]
== END 2018-12-28 14:51 | disposition home or self-care (01) ==
LOC: ED 22:39 → MS3 12-28 02:08
PROVIDERS: Admitting Provider Family Medicine; Emergency Provider Emergency Medicine; Referring Provider Family Medicine
DX: J45.901 Unspecified asthma with (acute) exacerbation (principal); E66.9 Obesity, unspecified; Z68.35 Body mass index [BMI] 35.0-35.9, adult; Z71.3 Dietary counseling and surveillance; Z86.74 Personal history of sudden cardiac arrest
CPT/HCPCS: 36415; 71045; 71275; 80048; 82962; 83605; 83735; 84484; 85025; 85379; 87449; 87633; 93005; 94640; 94667; 96361; 96372; 96374; 96376; 99218; 99285; J7030; Q9967; A4216; G0378

== ENCOUNTER → 2019-01-29 | Outpatient (CLI) | payer MEDICAID, SELFPAY ==
[2019-01-02 13:40] VITALS: BMI 35.7
[2019-01-29 12:30] VITALS: PULSE 100; PULSE 108; PULSE 116; PULSE 119; PULSE 120; PULSE 123; O2SAT 92; O2SAT 93; O2SAT 95; O2SAT 97
--- NOTE | 2019-01-29 13:18 | CPS ---
Pt SOB for the whole 6 min test, pt unable to complete 6 min walk and stopped at 5 minutes due to having increased SOB. Pt wears 2L O2 @home, [employer] is the home care [employer]. Pt was on RA for the entire test, SpO2 stayed above 88%.
--- NOTE | 2019-01-29 14:54 | WT_ITS ---
PSN 6 Minute Walk Test - 6 Minute Walk Test 6 Minute Walk Test: 6 Minute Walk Test PSN:6-Minute Walk Test Start: 01/29/19 13:15 Freq: Status: Active Protocol: [id number] Document 01/29/19 12:30 HG (Rec: 01/29/19 13:22 HG [id number]) 6 Minute Walk Test Date Performed 01/29/19 Time Performed 12:30 Height 5 ft 4 in Weight: 98.883 kg Weight in Pounds 218.[address]: Tara Sanders Assistive device used: Cane Pre-test Oxygen Delivery Method Room Air Pulse Ox (%) 97 Pulse Rate (60-100 beats/min) 100 Dyspnea Edd Scale (0-10) 3 Exertion Edd Scale (6-20) 11 1st minute Oxygen Delivery Method Room Air Pulse Ox (%) 93 Pulse Rate (60-100 beats/min) 116 H Reported Symptoms Increased Work of Breathing 2nd minute Oxygen Delivery Method Room Air Pulse Ox (%) 92 Pulse Rate (60-100 beats/min) 119 H Reported Symptoms Increased Work of Breathing 3rd minute Oxygen Delivery Method Room Air Pulse Ox (%) 92 Pulse Rate (60-100 beats/min) 119 H Reported Symptoms Increased Work of Breathing 4th minute Oxygen Delivery Method Room Air Pulse Ox (%) 92 Pulse Rate (60-100 beats/min) 123 H Reported Symptoms Increased Work of Breathing 5th minute Oxygen Delivery Method Room Air Pulse Ox (%) 93 Pulse Rate (60-100 beats/min) 120 H Reported Symptoms Increased Work of Breathing Post-test Oxygen Delivery Method Room Air Pulse Ox (%) 95 Pulse Rate (60-100 beats/min) 108 H Dyspnea Edd Scale (0-10) 5 Exertion Edd Scale (6-20) 14 Reported Symptoms Increased Work of Breathing Full Laps Walked 7 Partial Lap, Number of Tiles Walked 0 Total Distance Walked (ft) 413 01/29/19 13:18 Cardiopulmonary Services by Ana Laura England Pt SOB for the whole 6 min test, pt unable to complete 6 min walk and stopped at 5 minutes due to having increased SOB. Pt wears 2L O2 @home, [employer] is the home care [employer]. Pt was on RA for the entire test, SpO2 stayed above 88%. Initialized on 01/29/19 13:18 - END OF NOTE - Interpretation Interpretation: The patient was able to ambulate only 413 feet over the course of 6 minutes on room air with the assistance of a cane. The patient did have significant desaturation from a baseline of 97% to as low as 92%. Tachycardia was noted throughout testing with a peak heart rate of 123 bpm. These findings are consistent with a respiratory limitation exercise tolerance. - Recommendations Recommendations: No supplemental oxygen is indicated at this time, but patient will need to be followed closely given level of desaturation.
== END | disposition home or self-care (01) ==
LOC: PSN 12:36
PROVIDERS: Family Provider Family Medicine; PCP Family Medicine; Referring Provider Nurse Practitioner Acute Care; Visit Provider Nurse Practitioner Acute Care
DX: J45.901 Unspecified asthma with (acute) exacerbation (principal)
CPT/HCPCS: 94618

== ENCOUNTER → 2019-02-05 | Outpatient (CLI) | payer MEDICAID, SELFPAY ==
[2019-01-02 13:40] VITALS: BMI 35.7
[2019-02-05 10:50] LABS: Absolute Lymphocyte Count 2.44 X10^3/ul (0.83-4.51); Absolute Neutrophil Count 5.8 X10^3/uL (2.0-7.7); Basophil# 0.04 X10^3/uL; Basophil% 0.4 % (0-1); Eosinophil# 0.24 X10^3/uL; Eosinophils% 2.6 % (0-5); Hematocrit 37.3 % (37-47); Hemoglobin 11.5 g/dl (12.0-15.0); Lymphocyte # 2.44 X10^3/ul (4.0); Lymphocyte % 26.8 % (19-41); Mean Corp Hgb Conc 30.8 g/gl (32-36); Mean Corpuscular Hgb 25.9 pg (27.0-32.0); Mean Platelet Vol. 9.9 fl (6.2-12.0); Monocyte# 0.61 X10^3/uL; Monocyte% 6.7 % (0-10); Neutrophil # 5.76 X10^3/uL (2.7-7.7); Neutrophil % 63.2 % (47-70); Platelet Count 392 K/mm3 (150-450); RBC Distribution Width CV 14.9 % (11.6-14.6); Red Blood Count 4.44 M/mm3 (4.2-5.4); White Blood Count 9.1 K/mm3 (4.4-11.0)
[2019-02-05 10:54] LABS: POSITIVE COUNT NO; POSITIVE DIFFERENTIAL NO; POSITIVE MORPHOLOGY NO
--- NOTE | 2019-02-07 07:59 | PFT ---
INTRODUCTION: The patient is a 38-year-old female that presents for pulmonary function studies secondary to a diagnosis of asthma. Respiratory therapy reports good patient effort. Bronchodilators were used during testing. INTERPRETATION: Forced expiration spirometry demonstrates no evidence of a large airways obstructive ventilatory defect. There was a significant response to aerosolized bronchodilators noted. Spirograms are of good quality and plateau normally. Body plethysmography was performed and reveals a decreased TLC to 3.26 L, 64% of predicted, indicative of a moderate restrictive ventilatory impairment. The remainder of the lung volumes are symmetrically reduced. Diffusing capacity by single breath CO is symmetrically reduced at 43% of predicted. IMPRESSION: Moderate restrictive ventilatory impairment with symmetric reduction in diffusing capacity. The patient did have a positive bronchodilator response.
[2019-02-09 20:06] LABS: Alternaria alternata <0.10 kU/L (Class 0); Aspirgillus flavus Negative (Neg:<1:1); Aspirgillus fumigatus Negative (Neg:<1:1); Aspirgillus niger Negative (Neg:<1:1); Bermuda Grass <0.10 kU/L (Class 0); Bluegrass, Kentucky <0.10 kU/L (Class 0); Cat Hair/Dander, Standard 0.32 kU/L (Class I); D farinae Mite 0.42 kU/L (Class I); D pteronyssinus 0.44 kU/L (Class I); Dog Epithelia <0.10 kU/L (Class 0); Elm, American White <0.10 kU/L (Class 0); Oak, White <0.10 kU/L (Class 0); Plantain, English <0.10 kU/L (Class 0); Ragweed, Short/Common <0.10 kU/L (Class 0)
[2019-02-11 11:24] LABS: Mouse Urine <0.10 kU/L (Class 0)
[2019-02-11 11:25] LABS: Immunoglobulin E 12 IU/mL (6-495)
== END | disposition home or self-care (01) ==
PROVIDERS: Family Provider Family Medicine; PCP Family Medicine; Referring Provider Nurse Practitioner Acute Care; Visit Provider Nurse Practitioner Acute Care
DX: J45.901 Unspecified asthma with (acute) exacerbation (principal)
CPT/HCPCS: 36415; 82785; 85025; 86003; 86606; 94060; 94726; 94729

== ENCOUNTER 2019-02-28 11:00 | Outpatient (RCR) | payer MEDICAID, SELFPAY ==
[2019-01-02 13:40] VITALS: BMI 35.7
--- NOTE | 2019-01-30 09:52 | HP.PTEVAL ---
Patient's Visit Information ELIZABETH MARTIN is a 38 year old F referred to Physical Therapy by Kevyn Jiménez MD with a diagnosis of Bilateral LE weakness and SOB. Date of Evaluation: 01/30/19 Physical Therapist: Heather Otero DPT - Visit Plan Frequency: 3x /Week Duration: 4 Weeks Plan: Focus on LE and core strength/stabilization. Caution SOB- wears 2L O2 - Subjective Findings: Patient reports that she is trying to booste up her lungs and strengthen her legs. Had the flu and put her in a coma back in August- spent 3 months in medical facilities in [facility]. Was in 2 hospitals on full life support. Had a lot of muscle loss and the top of the legs are numb. Feels like her legs are pretty weak at times and feels a little wobbly. Came back to [place] at the end of November- had no help in [place] so she had to come home. Fully I prior to this but was using a cane due to leg weakness- did work until the weakness started about 2 years ago. Plans to be living indpendently soon- single story with a set up steps to get in with no HR currently but they will be putting one in. No pain is associated with this but does get sharp pains for a few seconds in the top of both legs. Unsure of what aggravates the pain- feels like a stab is both legs. Has had a lot of images. Is currently on 2 L of 02 and they are still trying to figure out whats going on with her lungs. 2L at all times. Sleep: no problems. PMHx: right knee surgery clean out, leg weakness. Meds: none- inhalers as needed. Does not drive - Objective Posture: FH, RS- can correct but does not maintain. Gait: no deviation noted but does have SOB after approx 300 feet- wearing O2 and uses SC. Stairs: asc: recip with 1 HR and cane- desc: non recip with right LE leading with cane and 1 HR- had to stop at top of stairs to catch breath. HR/TR: with UE A able but reports fatigue after 3 of each. SLS: WS but unable to SLS for more than 2 seconds with LOB and reports of instability. ROM: WFL in all planes. Sensation: diminished to gross light touch over anterior thigh bilateral. Reflex: WNL in patellas bilaterally. Strength: Core: poor, Hip: 4/5 throughout, Knee: 4+/5, Ankle: 5/5 bilaterally - Goals Goal 1:: Patient will be I with HEP and progression Goal Time Frame: 4-6 Weeks Goal 2:: Patient will ambulate >300 feet with no AD and a normalized gait pattern with no SOB Goal Time Frame: 4-6 Weeks Goal 3:: Patient will SLS for 15 seconds without LOB Goal Time Frame: 4-6 Weeks Goal 4:: Patient will demo 4+/5 strength in LE where deficit Goal Time Frame: 4-6 Weeks Goal 5:: Patient will maintain proper posture t/o tx session to demo increased core s/s Goal Time Frame: 4-6 Weeks - Rehabilitation Potential Physical Therapy Diagnosis: Patient presents with hypomobility- she has decreased strength and muscular endurance leading to decreased ability to perform ADL's. Rehabilitation Potential: Fair - Anticipated Interventions Patient/Client Instruction: Educate patient on: Benefits of Fitness Program Therapeutic Exercise to Include: Strength training, Endurance training, Balance training, Coordination, Agility training, Body mechanics, Postural training, Flexibilty training, Gait and locomotor training, Passive ROM, Active ROM, Dynamic Lumbar Stabilization For the Purpose of:: To improve muscle performance and motor function Functional Training to Include: Gait training Thank you for the opportunity to evaluate your patient. For Medicare and Medicare HMO plans, please review the plan of care and approve it. It will need to be FAXED BACK to us at [phone] for Medicare purposes. For Medicare only, by signing this I certify the plan of care. Please let me know if there are questions or concerns regarding this plan of care. Physician Signature: Date:
--- NOTE | 2019-02-28 11:23 | HP.PTDCSUM ---
HP - PT D/C Summary It has been my pleasure to treat ELIZABETH MARTIN under orders from Kevyn Jiménez MD, for the diagnosis of Bilateral LE weakness and SOB for a total of 8 visit(s). Discharge Date: Please see the following information for a summary of their discharge status. - Subjective Subjective: Patient reports that walking around is getting better- only using the cane for community ambulation. Does have front steps at home and she is able to asc/desc then without issues. Does not go out much. Breathing comes and goes. Moved into her own place so she is now doing more on her own. 50% better. Wants to work through building endurance on her own- does not feel that she needs to continue therapy. No pain. 2L at all times- Follow up with pulmonology 03/13/19. - Overall Improvement % Improvement: 50 - Objective Objective/Function: Posture: FH, RS- can correct and maintain in a hard back chair but is challenged without support Gait: no deviation noted without AD- reports SOB but PT did not notice symptoms of SOB after 300 feet Stairs: asc: recip with 1 HR HR/TR: with UE A able x30 SLS: 15 seconds each with increased muscle activation. ROM: WFL in all planes. Sensation: diminished to gross light touch over anterior thigh bilateral. Reflex: WNL in patellas bilaterally. Strength: Core: fair, Hip: 4+/5 throughout, Knee: 5/5, Ankle: 5/5 bilaterally - Goals Goal 1:: Patient will be I with HEP and progression Goal Progress: Goal Met Goal 2:: Patient will ambulate >300 feet with no AD and a normalized gait pattern with no SOB Goal Progress: Progressing Goal 3:: Patient will SLS for 15 seconds without LOB Goal Progress: Progressing Goal 4:: Patient will demo 4+/5 strength in LE where deficit Goal Progress: Progressing Goal 5:: Patient will maintain proper posture t/o tx session to demo increased core s/s Goal Progress: Progressing - Plan Plan: Discharge to I HEP- encouraged compliance with HEP- increasing mobility through walking and to call if any questions of concerns. - D/C Information If there are questions or concerns regarding this patient's physical therapy, please feel free to call me at [phone]. Thank you for the referral of this patient. Sincerely, Heather Otero DPT
== END 2019-02-28 11:33 | disposition home or self-care (01) ==
LOC: PT 11:00
PROVIDERS: Family Provider Family Medicine; PCP Family Medicine; Referring Provider Family Medicine; Visit Provider Family Medicine
DX: R29.898 Other symptoms and signs involving the musculoskeletal system (principal); M51.36 Other intervertebral disc degeneration, lumbar region
CPT/HCPCS: 97110; 97161; 97164; 97530

== ENCOUNTER → 2019-03-12 | Outpatient (CLI) | payer MEDICAID, SELFPAY ==
[2019-01-02 13:40] VITALS: BMI 35.7
--- NOTE | 2019-03-12 08:33 | RAD_ITS ---
STUDY: X-RAY - LUMBAR SPINE REASON FOR EXAM: Female, 38 years old. Low back pain TECHNIQUE: 5 view(s) of the lumbar spine were obtained. COMPARISON: None FINDINGS: Normal lumbar lordosis. There is no substantial scoliosis. There is a normal alignment of the vertebrae. Normal vertebral bodies and endplates. Normal disc space heights except for narrowing at L5/S1. There is no demonstrated fracture. The soft tissue structures are unremarkable. RAD/L/S Spine Min 4 Views IMPRESSION: Degenerative changes at L5/S1, otherwise unremarkable lumbar spine Electronically Signed: Dwain Whitfield MD at 9:27 EDT , Service support ,
[2019-03-12 10:10] LABS: Absolute Neutrophil Count 5.3 X10^3/uL (2.0-7.7); Basophil# 0.08 X10^3/uL; Eosinophil# 0.26 X10^3/uL; Eosinophils% 3.2 % (0-5); Hematocrit 39.1 % (37-47); Lymphocyte % 23.1 % (19-41); Mean Corp Hgb Conc 30.7 g/dL (32-36); Mean Corpuscular Hgb 26.2 pg (27.0-32.0); Mean Corpuscular Volume 85.4 fL (81-99); Monocyte# 0.61 X10^3/uL; Monocyte% 7.4 % (0-10); NRBC Flagged by Analyzer 0 % (0-5); Neutrophil # 5.34 X10^3/uL (2.7-7.7); Neutrophil % 64.9 % (47-70); Platelet Count 379 K/mm3 (150-450); RBC Distribution Width CV 15.1 % (11.6-14.6); RBC Distribution Width SD 47.5 fl (35.1-43.9); Red Blood Count 4.58 M/mm3 (4.2-5.4); White Blood Count 8.2 K/mm3 (4.4-11.0)
[2019-03-12 10:20] LABS: Erythrocyte Sedimentation Rate 29 mm/hr (0-20)
[2019-03-12 10:23] LABS: ALB/GLOB Ratio 0.8 RATIO (0.9-2.4); AST(SGOT) 15 U/L (15-37); Alanine Aminotransfer ALT/SGPT 26 U/L (13-56); Albumin, Serum 3.5 g/dL (3.2-5.0); Alkaline Phosphatase 101 U/L (45-117); Anion Gap 7 (5-15); BUN 16 mg/dL (7-18); BUN/Creat Ratio 12.9 RATIO (10-20); Calcium,Total 9.2 mg/dL (8.5-10.1); Chloride 106 mmol/L (98-107); Creatinine, Serum 1.24 mg/dL (0.55-1.02); EST Glomerular Filtration Rate 51 mL/min (>60); Est Glom Filt Rate - Afr Amer 62 mL/min (>60); Ferritin 30 ng/mL (8-252); Globulin 4.2 g/dL (2.2-4.2); Glucose 96 mg/dL (74-106); Iron 44 ug/dL (50-170); Potassium 4.7 mmol/L (3.5-5.1); Protein, Total 7.7 g/dL (6.4-8.2); Sodium Level 140 mmol/L (136-145); Thyroid Stim Hormone (TSH) 2.96 uIU/mL (0.358-3.74)
[2019-03-12 10:25] LABS: Vitamin B12 540 pg/mL (211-911); Vitamin D,25 Hydroxy 16.3 ng/mL (29.95-100.01)
[2019-03-14 09:16] LABS: ANTINUCLEAR ANTIBODIES DIRECT Negative (Negative)
== END | disposition home or self-care (01) ==
PROVIDERS: Family Provider Family Medicine; PCP Family Medicine; Referring Provider Family Medicine; Visit Provider Family Medicine
DX: R20.0 Anesthesia of skin (principal); M51.36 Other intervertebral disc degeneration, lumbar region; N28.9 Disorder of kidney and ureter, unspecified
CPT/HCPCS: 36415; 72110; 80053; 82306; 82607; 82728; 83540; 84443; 85025; 85652; 86038; 86140

== ENCOUNTER → 2019-04-19 | Outpatient (CLI) | payer MEDICAID, SELFPAY ==
[2019-03-27 13:34] VITALS: BMI 37.4
--- NOTE | 2019-04-19 13:01 | ECHOCS_ITS ---
Reason For Study: DYSPNEA Procedure This was a 2D Doppler, Color Flow transthoracic echocardiogram. The study was technically difficult. Contrast injection was performed. Exam performed in department. Left Ventricle Normal LV size. Left ventricular systolic function is normal. The estimated ejection fraction is 65 %. No evidence for diastolic dysfunction. No regional wall motion abnormalities noted. Right Ventricle Normal RV size. Normal systolic function. Atria Normal left atrium. Normal right atrium. No doppler evidence for ASD. Mitral Valve There is no mitral annular calcification. Normal mitral valve. Trivial mitral valve insufficiency. Tricuspid Valve Normal tricuspid valve. Trivial tricuspid valve insufficiency. Unable to estimate RV systolic pressure/pulmonary artery pressure due to technically difficult study. Aortic Valve Trisinus/trileaflet aortic valve. Normal aortic valve. Pulmonic Valve The pulmonic valve is not well visualized. Trivial pulmonic valve insufficiency. Great Vessels Normal sized aortic root. Pericardium/Pleural No pericardial effusion. Medication 22 gauge I.V. with prn adaptor inserted into right arm. Diluted definity 3ml given slow IV push to enhance endocardial definition. MMode/2D Measurements & Calculations LVIDd: 3.8 cm IVSd: 0.89 cm Ao root diam: 2.8 cm LVIDs: 2.2 cm LVPWd: 0.90 cm RVDd: 2.5 cm FS: 41.4 % LAV(MOD-bp): 28.8 ml LA A4 area: 11.4 cm2 LA dimension(2D): 3.6 cm LAV(MOD-bp) Indexed: 14.0 ml/m2 LAV(MOD-sp2): 31.4 ml LAV(MOD-sp4): 25.4 ml RA A4 area: 7.8 cm2 Time Measurements MV dec time: 0.19 sec Doppler Measurements & Calculations MV E max rome: 83.2 cm/sec Lat Peak E' [place]: 12.6 cm/sec Med Peak E' [place]: 8.9 cm/sec MV A max rome: 76.7 cm/sec E/E' lat: 6.6 E/E' med: 9.3 MV E/A: 1.1 Ao V2 max: 143.1 cm/sec LV V1 max: 126.5 cm/sec PA V2 max: 136.8 cm/sec Ao max P.2 mmHg LV V1 max P.4 mmHg PI end-d rome: 91.9 cm/sec Interpretation Summary The study was technically difficult. Contrast injection was performed. Left ventricular systolic function is normal. The estimated ejection fraction is 65 %. Trivial mitral valve insufficiency. Trivial tricuspid valve insufficiency. Trivial pulmonic valve insufficiency. Unable to estimate RV systolic pressure/pulmonary artery pressure due to technically difficult study. No evidence for diastolic dysfunction. Ordering Physician: Dipak Fall Referring Physician: ALANNAH POE Performed By: Kaila Carrera RDCS, RVT
--- NOTE | 2019-04-19 13:56 | CT_ITS ---
STUDY: CT CHEST WITHOUT CONTRAST REASON FOR EXAM: Female, 38 years old. Dyspnea, restrictive airway disease RADIATION DOSAGE (If Supplied By Facility): CTDIvol = ( 14.80 ) mGy, DLP = ( 384.42 ) mGycm TECHNIQUE: Transaxial imaging was performed without the administration of intravenous contrast material. Individualized dose optimization techniques were used for this CT. COMPARISON: 27 Dec 2018 FINDINGS: Examination is limited due to lack of dedicated pulmonary protocol. This is a standard CT chest with limited ability to evaluate for airway or restrictive disease. Diagnostic information is available. Inspiratory volumes are low. There are scattered predominantly peripheral subpleural increased markings and faint groundglass densities, a nonspecific pattern most likely related to atelectasis and fixed right upper lobe scarring. There is a small number of subpleural small cysts in the left lower lung, all measuring less than 3 cm. Central airways are patent. There is no bronchiectasis. There is no nodular, cystic or fibrotic disease. Mediastinal contents are normal. Esophagus is normal. Cardiac chamber is normal in size and shape. Pericardium is normal. There is massively increased body habitus with extrathoracic lipomatosis. Pulmonary artery and aorta are normal. Osseous structures are intact without chest wall restrictive disease. Appearance is similar to recent prior. CT/Chest without Contrast IMPRESSION: 1. Limited evaluation due to nondedicated protocol. 2. No specific pulmonary diagnosis, mild atelectasis and minimal scarring. However, uncommon presentations of disease, such as sarcoidosis, is possible. 3. No pulmonary arterial hypertension. 4. Extrathoracic lipomatosis and elevated BMI. No chest wall restrictive disease. Electronically Signed: Cher Whitaker, at 17:16 EDT Tel , Service support ,
== END | disposition home or self-care (01) ==
PROVIDERS: Family Provider Family Medicine; PCP Family Medicine; Referring Provider Internal Medicine Critical Care Medicine; Visit Provider Internal Medicine Critical Care Medicine
DX: J98.4 Other disorders of lung (principal); R06.00 Dyspnea, unspecified; R06.02 Shortness of breath
CPT/HCPCS: 71250; 93306; Q9957; A4216; C8929

== ENCOUNTER → 2019-06-10 | Outpatient (CLI) | payer MEDICAID, SELFPAY ==
[2019-05-20 07:57] VITALS: BMI 38.6
[2019-06-10 17:37] LABS: Absolute Lymphocyte Count 2.83 X10^3/uL (0.83-4.51); Absolute Neutrophil Count 6.3 X10^3/uL (2.0-7.7); Basophil# 0.06 X10^3/uL; Basophil% 0.6 % (0-1); Eosinophil# 0.24 X10^3/uL; Eosinophils% 2.3 % (0-5); Hematocrit 41.2 % (37-47); Hemoglobin 12.7 g/dL (12.0-15.0); Lymphocyte # 2.83 X10^3/ul (4.0); Lymphocyte % 27.4 % (19-41); Mean Corp Hgb Conc 30.8 g/dL (32-36); Mean Corpuscular Hgb 27.5 pg (27.0-32.0); Mean Corpuscular Volume 89.2 fL (81-99); Mean Platelet Vol. 10.8 fl (6.2-12.0); Monocyte# 0.84 X10^3/uL; Monocyte% 8.1 % (0-10); NRBC Flagged by Analyzer 0 % (0-5); Neutrophil # 6.31 X10^3/uL (2.7-7.7); Neutrophil % 61.3 % (47-70); Platelet Count 376 K/mm3 (150-450); RBC Distribution Width CV 14.6 % (11.6-14.6); RBC Distribution Width SD 47.3 fl (35.1-43.9); Red Blood Count 4.62 M/mm3 (4.2-5.4); White Blood Count 10.3 K/mm3 (4.4-11.0)
[2019-06-10 17:47] LABS: Erythrocyte Sedimentation Rate 41 mm/hr (0-20)
[2019-06-10 17:52] LABS: Vitamin D,25 Hydroxy 29.6 ng/mL (29.95-100.01)
[2019-06-10 18:00] LABS: Anion Gap 8 (5-15); BUN 14 mg/dL (7-18); Calcium,Total 8.9 mg/dL (8.5-10.1); Chloride 103 mmol/L (98-107); Creatinine, Serum 1.17 mg/dL (0.55-1.02); EST Glomerular Filtration Rate 55 mL/min (>60); Est Glom Filt Rate - Afr Amer 66 mL/min (>60); Ferritin 40 ng/mL (8-252); Glucose 84 mg/dL (74-106); Iron 55 ug/dL (50-170); Iron Binding Capacity,Total 371 ug/dL (250-450); PERCENT IRON SATURATION 14.8 % (15.0-55.0); Potassium 4.4 mmol/L (3.5-5.1); Sodium Level 139 mmol/L (136-145); Thyroid Stim Hormone (TSH) 2.62 uIU/mL (0.358-3.74)
== END | disposition home or self-care (01) ==
LOC: MFPLAB 15:34
PROVIDERS: Family Provider Family Medicine; PCP Family Medicine; Referring Provider Family Medicine; Visit Provider Family Medicine
DX: D64.9 Anemia, unspecified (principal); N28.9 Disorder of kidney and ureter, unspecified; R25.2 Cramp and spasm; E55.9 Vitamin D deficiency, unspecified
CPT/HCPCS: 36415; 80048; 82306; 82728; 82746; 83540; 83550; 83735; 84443; 85025; 85652

== ENCOUNTER → 2019-06-13 | Outpatient (CLI) | payer MEDICAID, SELFPAY ==
[2019-05-20 07:57] VITALS: BMI 38.6
[2019-06-13 14:51] LABS: Mucous, Urine 0 SEEN /hpf (<or=2+); Red Blood Cells-Urine 0 SEEN /hpf (0-5); White Blood Cells 0 SEEN /hpf (0-5)
[2019-06-13 15:48] LABS: Color, Urine Yellow (Yellow); Glucose, Dipstick Normal (Normal); Ketone-Dipstick Negative (Negative); Leukocyte Esterase-Dipstick Negative /ul (Negative); Nitrite-Dipstick Negative (Negative); Occult Blood-Urine Negative /ul (Negative); Protein-Dipstick Negative (Negative); Specific Gravity, Urine 1.015 (1.002-1.030); Urine Bilirubin Dipstick Negative (Negative); Urine Clarity Sl. Cloudy (Clear); Urine Urobilinogen Normal (Normal); Urine pH 6.5 (5.0 - 8.0)
[2019-06-13 15:58] LABS: Bacteria RARE /hpf (None Seen); Squamous Epithelial Cells - UA 0-5 SEEN /hpf (5-10)
== END | disposition home or self-care (01) ==
LOC: LABSPEC 14:47
PROVIDERS: Family Provider Family Medicine; PCP Family Medicine; Referring Provider Family Medicine; Visit Provider Family Medicine
DX: N28.9 Disorder of kidney and ureter, unspecified (principal)
CPT/HCPCS: 81001

== ENCOUNTER → 2019-06-25 | Outpatient (CLI) | payer MEDICAID, SELFPAY ==
[2019-05-20 07:57] VITALS: BMI 38.6
--- NOTE | 2019-06-25 08:18 | RAD_ITS ---
STUDY: AIR CONTRAST UPPER GI SERIES REASON FOR EXAM: Female, 38 years old. Dysphagia. FLUOROSCOPY TIME (if supplied): (0:49) minutes/seconds TECHNIQUE: SINGLE CONTRAST AND AIR CONTRAST FLUOROSCOPIC IMAGES. COMPARISON: None. FINDINGS: The cervical esophagus demonstrates normal motility without aspiration. There is no stricture or extrinsic mass effect. No intraluminal polypoid mass is identified. The thoracic esophagus distends well without stricture or mucosal fold thickening. No mucosal ulcerations are identified. There is no extrinsic mass effect. There are no diverticula. Small sliding hiatal hernia with gastroesophageal reflux. The stomach distends well without mucosal fold thickening or mucosal ulceration. There is no intraluminal mass. The duodenal bulb is freely distensible without deformity or ulceration. The duodenal sweep is normal in position and caliber. RAD/Upper GI w/BA Swallow IMPRESSION: Small sliding hiatal hernia with gastroesophageal reflux. Electronically Signed: Leobardo Recinos, at 13:30 EST , Service support ,
== END | disposition home or self-care (01) ==
LOC: RAD 08:17
PROVIDERS: Family Provider Family Medicine; PCP Family Medicine; Referring Provider Nurse Practitioner Acute Care; Visit Provider Nurse Practitioner Acute Care
DX: Z98.890 Other specified postprocedural states (principal)
CPT/HCPCS: 74246

== ENCOUNTER → 2019-07-10 19:57 | Outpatient (CLI) | payer MEDICAID, SELFPAY ==
[2019-05-20 07:57] VITALS: BMI 38.6
== END ==
PROVIDERS: Family Provider Family Medicine; PCP Family Medicine; Referring Provider Nurse Practitioner Acute Care; Visit Provider Nurse Practitioner Acute Care
DX: G47.33 Obstructive sleep apnea (adult) (pediatric) (principal)
CPT/HCPCS: 95810

== ENCOUNTER 2019-07-11 13:30 | Outpatient (RCR) | payer MEDICAID, SELFPAY ==
[2019-05-20 07:57] VITALS: BMI 38.6
--- NOTE | 2019-06-25 18:49 | HP.SP.AD_ITS ---
History - History Date of Eval: 06/13/19 Other Relevant Medical History/Diagnoses/Surgery: Patient had the flu in August of 2018 in [place]. She stated she was in a coma and had a tracheostomy and feeding tube placed. She came out of the coma in September, and the feeding tube was taken out in October and the trach was taken out the end of November. Patient return to [place] to live with her cousin and is now living on her own. Patient states that at the site of the trach that it gets very itchy and gets red. Patient had a pulmonary stress test which indicated that it did not indicate that she requires submental oxygen with ambulation. It was also discussed with patient that there was no benefit she has adequate oxygenation and wearing supplemental oxygen. Patient is also to be scheduled for a sleep apnea test. Review of Dr's notes indicate she is complaint with Synblcort 2 puffs daily. She rinses her mouth out after each use. She utilizes her albuterol nebulizer occasionally, and does find it to be helpful in relieving her shortness of breath at rest. Smoking Status: Never smoker Hx Tobacco Use: No - Pain Is pain an issue with your current prescribed condition?: No Patient Allergies - Allergies Allergies No Known Allergies Allergy (Verified 05/20/19 09:45) Subjective Dysphagia - Symptoms Reported Symptoms/Problems with: Difficulty Swallowing Solids - Current Diet Solids Current Diet: Regular - Current Diet Liquids Current Liquids: Thin Other Impressions - Comments addtional comments -: Patient stated that when the feeding tube was taken out in October 2018, she began eating a regular diet but had to make adaptions in order to eat regular diet. She gave examples of food that she has difficulty with spaghetti. She needs to cut it up into small pieces before she can eat it. She stated she only eats frozen fruit and she has to let it dissolve in her mouth before swallowing it. With protein, she stated she can only eat thin sliced meat or peanut butter and jelly sandwiches. She stated she rarely has chicken as it seems to come back up . Patient stated she feels like there is a knot on the inside of her throat when she swallows. Patient stated that she sometimes chokes on her saliva. Patient stated that she had lost weight but in now back to her normal weight. She stated she is working on weaning off her oxygen and can go 3-4 hours without it depending on the day. During evaluation, she had oxygen at 1 liter. She stated that get short of breath and at times has spasms. During the evaluation, she stated she felt like one was coming on. During evaluation, therapist observed 1 time were patient was observed tense up and jerk. It lasted less than 3 seconds and patient was able to continue talking. Patient stated that if she has 1-3 spasms, she can continue what she is doing, but if she has more, she has to stop what she is doing. Patient stated she tries to do breathing exercises on her own. Plan - Plan Plan: Plan is to refere patient for a modified barium swallow to asses physio logy of swallow mechanism. - Recommendations MBS: Yes Treatment Warranted: Yes - Frequency Duration: 2-4 Months - Prognosis Prognosis: Good - Goals that are Established: Determination:: Goals will be added/modified as deemed necessary and appropriate. Therapy will be discontinued when results of re-evaluation indicate therapy is no longer needed or lack of progress has been documented. - Goal #1-5 Goal #1: Recommend Modified barium swallow Goal #2: Recommend an ENT consult Goal #3: Patient will taught breathing relaxation techniques and be able to perform them independently. Education - Patient Instruction Patient Education: Treatment Plan Person Taught: Patient Teaching Method: Discussion Response to teaching: Verbalize understanding
--- NOTE | 2019-09-26 14:55 | HP.SP.DC ---
ST Discharge Summary - Discharged: Discharge: Therapist contacted patient by phone on 07/30/2019. Patient stated that she thinks the excercises are helping some. Therapist encouraged her to continue doing these excercises daily. Patient stated that she did have to go out over this past weekend and for rest of weekend had to be on O2 during day. She stated normally she does not have to be on O2 during the day. Patient is to contact therapist if she has any additional concerns. Patient has not scheduled any addtional appointments and patient has been discharged from speech therapy. [ End ]
== END 2019-07-11 19:00 | disposition home or self-care (01) ==
LOC: SP 13:30
PROVIDERS: Family Provider Family Medicine; PCP Family Medicine; Referring Provider Nurse Practitioner Acute Care; Visit Provider Nurse Practitioner Acute Care
DX: J38.3 Other diseases of vocal cords (principal); Z98.890 Other specified postprocedural states
CPT/HCPCS: 92507; 92524

== ENCOUNTER → 2019-08-29 20:14 | Outpatient (CLI) | payer MEDICAID, SELFPAY ==
[2019-05-20 07:57] VITALS: BMI 38.6
[2019-08-29] MEDS: Zolpidem Tartrate 5 MG Tablet PO (21:03)
== END ==
PROVIDERS: Family Provider Family Medicine; PCP Family Medicine; Referring Provider Nurse Practitioner Acute Care; Visit Provider Nurse Practitioner Acute Care
DX: G47.33 Obstructive sleep apnea (adult) (pediatric) (principal)
CPT/HCPCS: 95810

== ENCOUNTER 2019-10-03 09:41 | Outpatient (RCR) | payer MEDICAID, SELFPAY ==
[2019-05-20 07:57] VITALS: BMI 38.6
--- NOTE | 2019-10-03 15:43 | HP.OTFCE.D ---
FCE D/C Summary - Discharge ELIZABETH MARTIN was seen for a one time visit for an FCE on 10/03/19 and is discharged.
--- NOTE | 2019-10-03 17:02 | HP.OTFCE_ITS ---
HP OT Functional Capacity Eval Date of Evaluation: 10/03/19 - Task Lift Floor (Occasional 1-33% of Day): 20 lbs Floor (Frequent 34-66% of Day): 10 lbs Floor (Constant 67-100% of Day): negligible Floor PDL: Light Knee (Occasional 1-33% of Day): 15 lbs Knee (Frequent 34-66% of Day): 7.5 lbs Knee (Constant 67-100% of Day): negligible Knee PDL: Sedentary-Light Waist (Occasional 1-33% of Day): 20 lbs Waist (Frequent 34-66% of Day): 10 lbs Waist (Constant 67-100% of Day): negligible Waist PDL: Light Shoulder (Occasional 1-33% of Day): 15 lbs Shoulder (Frequent 34-66% of Day): 10 lbs Shoulder (Constant 67-100% of Day): negligible Shoulder PDL: Sedentary-Light Overhead (Occasional 1-33% of Day): 10 lbs Overhead (Frequent 34-66% of Day): 7.5 lbs Overhead (Constant 67-100% of Day): negligible Overhead PDL: Sedentary Comments: Inconsistencies noted with lifting tasks. Based on weight completed during the material handling assessment a power lift or in other words a knee or a waist lift should be able to generate more force and weightlifting abilities than a floor. Sofie's performance is not reflective of this occurrence. She was participative and willing to complete all tasks asked of her, but self- limiting behaviors noted. It appears her depression symptoms are limiting her functional abilities and she noted it has been three months since last counseling appointment to help maintain her mental health. - Work Activity/Posture Bending: Frequent Ability (34-66% of day) Squatting: Occasional Ability (1-33% of day) Comments: due to inability to complete full range; inconsistencies noted. Kneeling: Occasional Ability (1-33% of day) Comments: due to inability to complete full range; inconsistencies noted. Reaching out: Frequent Ability (34-66% of day) Reaching up: Frequent Ability (34-66% of day) Sitting: Frequent Ability (34-66% of day) Walking: Frequent Ability (34-66% of day) Standing: Frequent Ability (34-66% of day) - Reference Duration Sedentary Sedentary Light Light Light Medium Medium Medium Heavy Very Heavy Heavy Occasional (0-33% of day) Frequent (34-66% of day) Constant (67-100% of day) 10 # Negligible Negligible 15 # 8 # Negligible 20 # 10# Negli. 35 # 18 # 7 # 50 # 25 # 10 # 75 # 100 # >100 # 38 # 50 # >50 # 15 # 20 # >20 # - Patient Information Height: 1.63 m Weight:: 101.605 kg Hand Dominance: Right BP (Medication Use/Usual Values per pt report): No - Medical History Medical History Including Restrictions: No medical restrictions. - Diagnoses Diagnoses: Past Medical History: degenerative disc disease of L5-S1, oxygen use 1 liter in community and at nighttime, pneumonia, asthma, PTSD, Depression, and no history of tobacco use. Current: Sofie was referred for functional capacity assessment due to depression. She is status post hospital stay that occurred between August- November of 2018. She noted that she needed to be put into medically induced coma during hospital stay from pneumonia but is unclear why exactly coma was needed, and the patient is poor informant as she noted she does not fully understand her medical conditions that occurred during this period. Since hospital stay, she has needed continued use of oxygen and has not been able to return to work. Her last job was in [place] and she moved to [place] after hospital stay to be with family. This assessment was order as Sofie is filing for long-term disability and it is to determine current physical ability. No medication listed provided by patient and unable to look up. - Symptoms Symptoms: Sofie noted symptoms include some chronic pain in low back, decrease sensation on top of thighs, and general weakness and shortness of breath. She noted some ongoing issues with unstable blood sugar levels. Per patient report she is not diabetic but has been told she is borderline diabetic. She noted when blood sugar is low, she often has episode of near or complete syncope. - Pain Pain: Sofie noted chronic low back related pain. She has received physical and speech therapy services in clinic. She is currently not on pain management program but requires use of oxygen for community outings. She has not seen counselor for last three months. She noted she is working on getting 'things set up' with transportation. She noted that she often does not leave the house due to increased difficulty and increased fatigue with community outings. Carmela Pain Questionnaire is a self-report pain assessment to determine a patient?s accurate psychodynamics for accurate pain rating. A score of 30 or high indicates poor psychodynamics and the greater probability of decreased accuracy with accurate pain reporting. Pre- Carmela: 46. Post Carmela: 39. Fear Avoidance Questionnaire (FAQ) is a client self-report assessment for 18-64+ that has shown to be reliable and valid for determining increased fear with movements. A score of 96 or higher indicates increased fear avoidance behaviors. FAQ Pre-testin. -Fear avoidance belief about work (items 6,7,9,10,11,12,15): 32. -Fear avoidance belief about physical activity (items 2,3,4,5):20. FAQ Post testin. -Fear avoidance belief about work (items 6,7,9,10,11,12,15): 29. -Fear avoidance belief about physical activity (items 2,3,4,5):22. Oswestry Neck and Low back questionnaire is a self-report assessment in which patients report their perceived level of disability based on their perceived pain. Oswestry : 29/45= 64% - Work History Work History: Sofie has not worked for the last two years due to hospital stay that resulted in coma. She was living in [place] for the last 15 years and had previously been on disability due to PTSD and depression. She had started working for the [employer] two years ago, for about a year, before becoming sick. 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 She noted she was required to frequently walking and stand to complete job. Since that job she has not worked in last two years and returned to [place]. - Behavioral Behavioral: Sofie completed evaluation with therapist on this date of 10/03/19. She exhibits increased depression like symptoms as she arrived with oxygen cannula set at 1 liter and straight cane. Based on observed of movements and mobility it was deemed not medically necessary to use cane and it was not used during session. Speed was decreased with mobility related tasks, but she exhibits adequate balance and safety for mobility without assistive device. Oxygen was removed and no increase in shortness of breath was observed. Oxygen at room air for all tasks, without need to have oxygen placed back on during intermittent standing or seated breaks, remained between 93-98% with physical exertion tasks. Oxygen was removed for 2.5 hours and levels did not drop with exertion-based tasks. Sofie was cooperative with tasks completed but self- limiting behaviors noted with all tasks. She often would exhibit pain like facial grimace, but body mechanics and grimace remained the same for tasks regardless if weight was increased or decreased. With resistance changes she did not observe to have mechanical deficits, compensations or changes during tasks. It is unclear how accurate her performance was for her physical ability due to her inconsistencies and self-limiting behaviors. She may benefit from further cognitive functional capacity evaluation to determine her cognitive and executive functioning ability in regard to her ongoing depression and PTSD related symptoms in which she contributes to past childhood related trauma and ongoing mental health related concerns. - ADLS ADLS: Sofie lives alone in duplex style apartment. She has three steps to enter home with no handrail. She noted use of straight can to get around community and often had to take oxygen throughout community with her. She noted she has recently started to leave oxygen off for short time frames with sedentary activities while at home only. Sofie noted once in home, she has first floor set up. She is still completing all self-care tasks including cooking small meals, home management, and caring for cat. - Physical Examination Physical Examination: The purpose of this functional capacity evaluation (FCE) was to determine oSfie?s physical ability. This FCE was performed in order to glass cutter helper in the determination of her physical ability. Aerobic limiting factor: 85% of max adjust HR= (220-age) *.85= 154. Calculated max weight: 60% of weight= 134 lbs. Beginning Diagnostics: -Blood pressure: 114/74 mmHg. -Heart rate: 81 bpm. -Oxygen saturation at room air: 97% with oxygen at 1 liter. She was able to maintain oxygen levels without use of cannula during entire session. ROM: Lumbar Spine with goniometer: -Flexion: 0-34. -Extension: 0-34. -Lateral Flexion: R 0-19 , L 0-20. Oxygen off while completing and then did not use cane. Strength: Strength measurements completed with use of manual muscle testing and short arm access of dynamometer. Results are as follows: Upper Body: Shoulder flexion: -Dynamometer: R 7.2 , L 5.6 - completed distal locations into wall. Shoulder extension: -Dynamometer: R 8.7 , L 7.4 lbs - completed distal locations into wall. Shoulder abduction: -Dynamometer: R 13.3 , L 11.4 lbs. Shoulder Internal Rotation: -Dynamometer: R 10.2 , L 9.2 lbs - completed distal locations into wall. Shoulder External Rotation: -Dynamometer: R 6.8 , L 3.6 lbs - completed distal locations into wall. Elbow flexion: - Dynamometer: R 17.4 , L 17.8 lbs. Elbow extension: -Dynamometer: R 13.6 , L 10.9 lbs. Lower Body: Hip flexion: -Dynamometer: R 30.1 , L 26.4 lbs. Hip adduction: -Dynamometer: R 12.5 , L 11.7 lbs. Hip abduction: - Dynamometer: R 17.2 , L 12.2. Knee Flexion: -Dynamometer: R 18.9 , L 23.1. Knee extension: -Dynamometer: R 15.8 , L 14.8. Plantarflexion: - Dynamometer: R 12.3 , L 10.5. Dorsiflexion: -Dynamometer: R 31.5 , L 26.8. Completed at distal test locations. Right Cushion Mat Maker Strength Average: 27.33 Left Cushion Mat Maker Strength Average: 24.33 Right Lateral Pinch Average: 8.00 Right Lateral Pinch Percentile: below 10th Left Lateral Pinch Average: 9.00 Left Lateral Pinch Percentile: 10th Right Tripod Pinch Average: 8.00 Right Tripod Pinch Percentile: below 10th Left Tripod Pinch Average: 8.33 Left Tripod Pinch Percentile: 10th Comments: Five Span Cushion Mat Maker testing on Dynamometer: Position 1: R 20 , L 15. Position 2: R 15 , L 20. Position 3: R 17 , L 18. Position 4: R 19 , L 20. Position 5: R 17 , L 18. A coefficient of variation greater than 15 % indicated decreased consistency of effort. Coefficient of variation: R 11%, L 11%. Consistency of Effort: consistent. Rapid Cushion Mat Maker Exchange Testing: Right Average: 35, 25, 20. Left Average: 25, 22, 19. A coefficient of variation greater than 15 % indicated decreased consistency of effort. Coefficient of variation: Consistency of Effort: Completed all range of motion testing and strength testing with oxygen off but monitored and she was able to maintain 98% at room saturation. Sensation: Sensation testing completed on bilateral feet with monofilament touch test. A score of normal on touch test is 2.83 and within normal range with just some discrepancies for light touch is between 3.22-3.61. The higher the number in more complications related to patient?s ability to perceive touch related sensory stimuli. R foot: Great Toe 3.22 ,2nd 3.22 , 3rd 3.22 , 4th 3.22 , 5th 3.22. L foot: Great Toe 3.22 ,2nd 3.22 , 3rd 3.61 , 4th 3.61 , 5th 2.83 Fine Motor: Completed the Purdue Pegboard test to further determine the patient?s ability to complete 2-3 step tasks, assess fine motor control and general dexterity needed to complete assembly like work. The results are as follows: Right Hand: 9. -Percentile: below 1st. Left Hand: 10. -Percentile: below 1st. Both Hands: 9. -Percentile: 2nd. R+ L+ Both: 28. -percentile: below 1st. Assembly: 5. -percentile: below 1st. No oxygen worn during tasks and levels maintain at 96-98% room saturation. She stood for task. She did well sequencing tasks after initial demonstration. Balance: Functional reach test is used to determine static balance in patients. A score of 15 is normal and less than 10 increases risk of falling. A score of 6 or less significantly increases a patient?s risk of falling. Roscoe 1(demo; not counted): 8.5. Roscoe 2: 9.5. Roscoe 3: 9. Roscoe 4: 10. Average ( of 2-4th trials): 9.5 inches. Oxygen off and maintained at 97% with us eof oximeter. Functional Gait Assessment (FGA) is a dynamic balance test to determine vestibular functioning and general dynamic balance ability of patient 18-65+. This assessment can be used with clients of various backgrounds to determine functional dynamic balance needed to complete every day work related tasks. 1.Gait Level Surface:1. 2.Change in Gait Speed:2. 3.Gait with horizontal head turns:2. 4.Gait with vertical head turns:2. 5.Gait and pivot turn:2. 6.Step over obstacle:1. 7.Gait with narrow base of support: 3. 8.Gait with eyes cl osed: 2. 9.Ambulating Backwards: 1. 10.Steps: 2. Total Score: 18 /maximum score 30. Sofie exhibits self-limiting behaviors. She arrived in session with cane but after observation therapist deemed unnecessary and she was willing to complete tasks without use of cane. Gait belt was used as safety precaution. Sofie was able to complete all tasks with adequate balance but due to self-limiting behaviors score was lower that her full potential. - Non Material Handling Activities Bending: Heart rate prior to beginning with use of pulse oximeter: 94 bpm. Oxygen saturation at room air with use of pulse oximeter: 97%. 3x, 10x in 50 seconds, and 10x faster in 40 seconds. Completed tasks with fair body mechanics. Sofie completes self-limiting behaviors throughout tasks with I can't go farther but she exhibits balance, equal bilateral weightbearing into lower extremities, and movement to be able to go farther than observed. Additionally, she was able to complete greater bend during task than what she was during range of motion measurements. Inconsistencies noted. She verbalized I need to sit down but with encouragement was able to continue to stand for task. No oxygen was used, and oxygen levels were maintained. Increase in heart rate supports exertion but pain was unchanging for assessment. Heart rate posttest with use of pulse oximeter: 101 bpm. Oxygen saturation at room air with use of pulse oximeter: 97 %. Perceived pain: 6/10 Squatting: Heart rate prior to beginning with use of pulse oximeter: 96 bpm. Oxygen saturation at room air with use of pulse oximeter: 96%. 3x, 10x in 32 seconds, and 10x faster in 22 seconds. Completed with fair mechanics and ability to complete about 50% of full squat. There were not observed mechanical; deficits or changes to indicate increase in pain and Sofie noted pain was maintained. No oxygen used and levels within normal limits. Self- limiting behaviors were observed and inconsistencies in performance noted. Heart rate posttest with use of pulse oximeter: 101 bpm. Oxygen saturation at room air with use of pulse oximeter: 95%. Perceived pain: 6/10 Kneeling: Heart rate prior to beginning with use of pulse oximeter: 94 bpm. Oxygen saturation at room air with use of pulse oximeter: 98%. 3x, 10x in 30 seconds, and 10x faster in 27 seconds. Sofie exhibits ability to complete 25% of full kneel. She exhibits poor body mechanics and need for external support. Self-limiting behaviors were observed, and increased debility is cause for need for external support as heart rate does not reflect pain or exertion of this task. Inconsistencies noted. No oxygen used and levels maintained. Heart rate posttest with use of pulse oximeter: 92 bpm. Oxygen saturation at room air with use of pulse oximeter: 97 %. Perceived pain: 6/10 Reaching out/up: Heart rate prior to beginning with use of pulse oximeter: 96 bpm. Oxygen saturation at room air with use of pulse oximeter: 94%. 3x, 10x in 21 seconds, and 10x faster in 10.40 seconds. Sofie exhibits good body mechanics and range of motion of bilateral upper extremities. No mechanical deficits or changes noted. No oxygen used for task and oxygen saturation maintained at room temperature. Exhibits ability to complete frequently. No increase in exertion noted with heart rate. Heart rate posttest with use of pulse oximeter: 96 bpm. Oxygen saturation at room air with use of pulse oximeter: 97%. Perceived pain: 6/10. Heart rate prior to beginning with use of pulse oximeter: 86 bpm. Oxygen saturation at room air with use of pulse oximeter: 97%. 3x, 10x in 17.87 seconds, and 10x faster in 14.73 seconds. Sofie exhibits good body mechanics and range of motion of bilateral upper extremities. No mechanical deficits or changes noted. No oxygen used for task and oxygen saturation maintained at room temperature. Exhibits ability to complete frequently. No increase in exertion noted with heart rate. Heart rate posttest with use of pulse oximeter: 92 bpm. Oxygen saturation at room air with use of pulse oximeter: 97%. Perceived pain:6/10 Walking: Heart rate prior to beginning with use of pulse oximeter: 92 bpm. Oxygen saturation at room air with use of pulse oximeter:97 %. Sofie exhibit fair gait pattern for total of walking only tasks for 15 minutes without seated or standing break. She completed gait slowly around facility but completed 5 laps around gym at 340 feet for 15 minutes without use of straight cane. Self- limiting behaviors noted as cane appears to be sense of comfort but unneeded for tasks. Cane was not used for evaluation and not needed to complete walking tasks. No oxygen used and levels were maintained at room saturation. Increase in heart rate supports exertion but pain unchanging. Heart rate posttest with use of pulse oximeter: 111 bpm. Oxygen saturation at room air with use of pulse oximeter: 96%. Perceived pain:6/10 Standing: Sofie completed standing tasks for static based tasks only for 15 minutes with occasional weight shift. She then completed an additional 36 minutes of standing tasks for both static and dynamic activities during assessment with no use of cane or oxygen. She was able to maintain oxygen levels and no increase in heart rate indicated to increase in pain. Exhibits fair gait and standing patterns with decreased speed likely due to fatiguing as Sofie lives sedentary lifestyle. Sitting: Sofie exhibit ability to sit for 30 minutes with no mechanical changes or compensations observed. No oxygen on and level maintained. Climbing Stairs: Heart rate prior to beginning with use of pulse oximeter: 94 bpm. Oxygen saturation at room air with use of pulse oximeter: 95%. Able to climb 10 steps with alternating foot pattern and use of one handrail. She noted she does not have handrails to use at home but does use wall. She completed stairs at slower speed with no cane or oxygen and heart rate and oxygen levels maintained. Increase in heart rate supports exertion but pain unchanging. Heart rate posttest with use of pulse oximeter: 100 bpm. Oxygen saturation at room air with use of pulse oximeter: 95%. Perceived pain:6/10 - Dynamic Occasional Lifting Capacity Floor Lift: Heart rate prior to beginning with use of pulse oximeter: 90 bpm. Oxygen saturation at room air with use of pulse oximeter: 96%. Maximum weight: 1x25 lbs. Occasional Liftinx 20 lbs. Frequent liftinx 10 lbs. Sofie exhibits poor body mechanics with increased winces and decreased ergonomics. Although, she exhibits these pain related behaviors her exertion observed, and behaviors do not differ with added weight and increase in heart rate is likely due to increase in exertion as pain is unchanging. When weight is added mechanics are the same and no further compensations are noted. Increase in heart rate is likely due to her increased debility as inconsistencies noted. No oxygen was worn or assistive device used for task and oxygen level and safety maintained by client. Heart rate posttest with use of pulse oximeter: 123 bpm. Oxygen saturation at room air with use of pulse oximeter: 93%. Perceived pain: 6/10 Knee Lift: Heart rate prior to beginning with use of pulse oximeter: 106 bpm. Oxygen saturation at room air with use of pulse oximeter: 97%. Maximum weight: 1x 20 lbs. Occasional Liftinx 15 lbs. Frequent liftinx 7.5 lbs. Completed with fair body mechanics. Same observation noted as mechanics did not differ with added or decreased weight but pain like behaviors of facial grimace noted. Inconsistencies and self-limiting behaviors observed. Increase in heart rate is likely due exertion. No oxygen or assistive device used for task and levels and safety maintained by client. Heart rate posttest with use of pulse oximeter:126 bpm. Oxygen saturation at room air with use of pulse oximeter:98 %. Perceived pain:6/10 Waist Lift: Heart rate prior to beginning with use of pulse oximeter: 101 bpm. Oxygen saturation at room air with use of pulse oximeter: 97%. Maximum weight: 1x 27 lbs. Occasional Liftinx 20 lbs. Frequent liftinx 10 lbs. Completed with fair body mechanics. Same observation noted with self- limiting behaviors as mechanics did not differ with added or decreased weight but pain like behaviors of facial grimace noted. No increase in pain reported and no increase in distress like behaviors like shortness of breath observed. Increase in heart rate is likely due exertion. No oxygen or assistive device used for task and levels and safety maintained by client. Inconsistencies noted. Heart rate posttest with use of pulse oximeter: 108 bpm. Oxygen saturation at room air with use of pulse oximeter: 98%. Perceived pain: 6/10 Shoulder Lift: Heart rate prior to beginning with use of pulse oximeter: 100. Oxygen saturation at room air with use of pulse oximeter: 97%. Maximum weight: 1x 20 lbs. Occasional Liftinx 15 lbs. Frequent liftinx 10 lbs. Completed with fair body mechanics. Same observation noted with self-limiting behaviors as mechanics did not differ with added or decreased weight but pain like behaviors of facial grimace noted. No increase in pain reported and no increase in distress like behaviors like shortness of breath observed. Increase in heart rate is likely due exertion. No oxygen or assistive device used for task and levels and safety maintained by client. Inconsistencies noted. Heart rate posttest with use of pulse oximeter:124 bpm. Oxygen saturation at room air with use of pulse oximeter:96%. Perceived pain: 6/10 Overhead Lift: Heart rate prior to beginning with use of pulse oximeter: 96 bpm. Oxygen saturation at room air with use of pulse oximeter: 96%. Maximum weight: 1x 10 lbs. Occasional Liftinx 10 lbs. Frequent liftinx 7.5 lbs. Completed with poor body mechanics. Same observation noted with self- limiting behaviors as mechanics did not differ with added or decreased weight but pain like behaviors of facial grimace noted. No increase in pain reported and no increase in distress like behaviors such as shortness of breath observed. Heart rate does not indicate distress. No oxygen or assistive device used for task and levels and safety maintained by client. Inconsistencies noted. Heart rate posttest with use of pulse oximeter: 101 bpm. Oxygen saturation at room air with use of pulse oximeter: 96%. Perceived pain:6/10 Carrying: Heart rate prior to beginning with use of pulse oximeter: 92 bpm. Oxygen saturation at room air with use of pulse oximeter:95 %. Occasional Liftinx 15 lbs. Frequent liftinx 10 lbs. Completed with fair body mechanics. Same observation noted with self-limiting behaviors as mechanics did not differ with added or decreased weight but pain like behaviors of facial grimace noted. No increase in pain reported and no increase in distress like behaviors like shortness of breath observed. Heart rate does not indicate distress. No oxygen or assistive device used for task and levels and safety maintained by client. Inconsistencies noted. Heart rate posttest with use of pulse oximeter: 96 bpm. Oxygen saturation at room air with use of pulse oximeter: 94%. Perceived pain: 6/10 Comments: Eyad Cognitive Assessment version 8.2 was completed as cognitive screen and she scored a 22/30. This score is below normal levels and further assessment may be beneficial for cognitive related purposes. Ending Diagnostics: -Blood pressure: 125/84 mmHg. -Heart rate: 96 bpm. -Oxygen saturation at room air: 97% post assessment after not wearing oxygen for all of evaluation as directed by therapist and consistently monitoring levels.
== END 2019-10-03 19:00 | disposition home or self-care (01) ==
LOC: OT 09:41
PROVIDERS: PCP Family Medicine; Referring Provider Family Medicine; Visit Provider Family Medicine
DX: F32.9 Major depressive disorder, single episode, unspecified (principal)
CPT/HCPCS: 97750

== ENCOUNTER → 2019-10-08 | Outpatient (CLI) | payer MEDICAID, SELFPAY ==
[2019-05-20 07:57] VITALS: BMI 38.6
[2019-10-08] MEDS: Zolpidem Tartrate 5 MG Tablet PO (09:30)
== END | disposition home or self-care (01) ==
LOC: SL 20:05
PROVIDERS: PCP Family Medicine; Referring Provider Nurse Practitioner Acute Care; Visit Provider Nurse Practitioner Acute Care
DX: G47.33 Obstructive sleep apnea (adult) (pediatric) (principal)
CPT/HCPCS: 95811

== ENCOUNTER → 2019-10-28 13:04 | Outpatient (CLI) | payer MEDICARE, MEDICAID, SELFPAY ==
[2019-05-20 07:57] VITALS: BMI 38.6
[2019-10-24 07:18] VITALS: BMI 38.2
== END ==
PROVIDERS: PCP Family Medicine; Visit Provider Nurse Practitioner Acute Care
DX: Z46.89 Encounter for fitting and adjustment of other specified devices (principal)

== ENCOUNTER 2019-11-16 14:00 | Emergency (ER) | payer MEDICARE, MEDICAID, SELFPAY ==
[2019-10-24 07:18] VITALS: BMI 38.2
[2019-11-16 14:00] VITALS: BP 129/77; PULSE 92; RESP 16; TEMP 36.6; O2SAT 100; BMI 38.7
--- NOTE | 2019-11-16 14:27 | RAD_ITS ---
STUDY: X-RAY - LEFT HUMERUS REASON FOR EXAM: Female, 39 years old. LEFT SHOULDER PAIN S/P FALL -- LIMITED ROM TECHNIQUE: 3 view(s) of the humerus. COMPARISON: None. FINDINGS: There is a focal fracture of the greater tuberosity. There is soft tissue edema. RAD/Humerus min 2 Views IMPRESSION: There is an acute fracture of the left humeral head involving the greater tuberosity. Electronically Signed: Anni Plata MD at 15:30 EDT Tel , Service support ,
--- NOTE | 2019-11-16 14:27 | RAD_ITS ---
STUDY: X-RAY - LEFT SHOULDER REASON FOR EXAM: Female, 39 years old. LEFT SHOULDER PAIN S/P FALL -- LIMITED ROM TECHNIQUE: 3 view(s) of the shoulder. COMPARISON: None. FINDINGS: Normal glenohumeral articulation. There is minimal widening of the AC joint suggesting a Type I acromioclavicular joint separation. Normal acromion. There is an acute fracture of the greater tuberosity. There is soft tissue edema. Normal visualized pulmonary apex. RAD/Shoulder min 2 Views IMPRESSION: Acute fracture of the greater tuberosity. Type I AC separation. Electronically Signed: Anni Plata MD at 15:31 EDT Tel , Service support ,
--- NOTE | 2019-11-16 14:27 | ED.VISSUMM ---
- ER Visit Summary Date of Service: 11/16/19 Chief Complaint: Left shoulder injury History of Present Illness: The patient is a 39 F who presents after injury to her left shoulder that occurred today after a fall. Patient states she fell off of a chair and landed on her left shoulder. Patient states her pain is sharp and stabbing. Patient states the pain is worse with movement. Patient states the pain is better at rest. Patient denies any paresthesias or weakness. Patient denies any head injury or loss of consciousness. Patient denies any other injuries. Physical Examination: Vital signs are stable. Patient is afebrile. Patient is in no acute distress. Musculoskeletal exam reveals tenderness over the left shoulder. There is also some tenderness over the left humerus. There is no ecchymosis or deformity. There is no bony crepitance or step-off. Range of motion was limited in all motions of the left shoulder secondary to pain. Strength is 5/5 in the radial, median, and ulnar areas. Sensation was intact to light touch in the radial, median, ulnar, and axillary areas. Radial pulses are equal bilaterally. Capillary refill is less than 2 seconds in all digits. Test Results: X-rays of the left shoulder and left humerus were obtained. There is a nondisplaced fracture of the greater tuberosity. This was interpreted by the radiologist and myself. Emergency Department Course and Treatment: Patient was given a sling. Patient was instructed to follow-up with her primary care physician in 5 to 7 days. Patient was also given referral for orthopedics. Patient was instructed to return if worse in any way. Patient understood and was agreeable with the plan. All questions were answered. Disposition: Discharge home Impression: 1. Acute fracture left greater tuberosity This note was generated with [employer] dictation software. It may contain incorrect words, spelling, and punctuation that were not noted in review of the chart prior to signing ED Disposition - Plan for ED Patient: Disposition: Home or Assisted Living Diagnosis: Fracture of greater tuberosity of left humerus Instructions: ED Fracture Upper Extremity Referrals: Kevyn Jiménez MD [Primary Care Provider] - 5-7 Days Dea Chaney DO [STAFF PHYSICIAN] - 5-7 Days
== END 2019-11-16 16:28 | disposition home or self-care (01) ==
PROVIDERS: Emergency Provider Emergency Medicine; PCP Family Medicine
DX: S42.252A Displaced fracture of greater tuberosity of left humerus, initial encounter for closed fracture (principal); E66.9 Obesity, unspecified; J45.909 Unspecified asthma, uncomplicated; Z79.51 Long term (current) use of inhaled steroids; W07.XXXA Fall from chair, initial encounter; Y93.89 Activity, other specified; Y92.89 Other specified places as the place of occurrence of the external cause; Y99.8 Other external cause status
CPT/HCPCS: 73030; 73060; 99282

== ENCOUNTER → 2019-12-10 | Outpatient (CLI) | payer MEDICARE, MEDICAID, SELFPAY ==
[2019-12-05 08:53] VITALS: BMI 38.7
--- NOTE | 2019-12-10 14:13 | RAD_ITS ---
STUDY: X-RAY - LEFT HUMERUS REASON FOR EXAM: Female, 39 years old. Pt fell November 15, left humeral head fx TECHNIQUE: 2 view(s) of the humerus. COMPARISON: Comparison is made with prior study dated November 16, 2019. FINDINGS: Stable fracture of the greater tuberosity. There is good alignment. Minimal healing is taking place. There is no demonstrated fracture or osseous destructive process. There is no demonstrated soft tissue abnormality. RAD/Humerus min 2 Views IMPRESSION: Healing fracture of the greater tuberosity. Electronically Signed: Leobardo Recinos, at 15:34 EDT , Service support ,
== END | disposition home or self-care (01) ==
LOC: MTRAD 14:12
PROVIDERS: PCP Family Medicine; Referring Provider Family Medicine; Visit Provider Family Medicine
DX: S42.293A Other displaced fracture of upper end of unspecified humerus, initial encounter for closed fracture (principal)
CPT/HCPCS: 73060

== ENCOUNTER → 2020-06-23 11:45 | Outpatient (CLI) | payer MEDICARE, MEDICAID, SELFPAY ==
[2020-03-10 06:42] VITALS: BMI 38.7
[2020-06-23 12:15] VITALS: PULSE 107; PULSE 108; PULSE 111; PULSE 115; PULSE 117; PULSE 119; PULSE 121; O2SAT 90; O2SAT 91; O2SAT 96; O2SAT 97
--- NOTE | 2020-06-23 12:17 | CPS ---
Patient wears 1-2 lpm Oxygen at home when needed.
--- NOTE | 2020-06-24 13:09 | PCM.PSN.6M ---
PSN 6 Minute Walk Test - 6 Minute Walk Test 6 Minute Walk Test: 6 Minute Walk Test PSN:6-Minute Walk Test Start: 06/23/20 12:15 Freq: Status: Active Protocol: [id number] Document 06/23/20 12:15 KAY (Rec: 06/23/20 12:17 KAY [id number]) 6 Minute Walk Test Date Performed 06/23/20 Time Performed 12:00 Height 5 ft 4 in Weight: 237 lb Weight in Pounds [address]: Dipak Fall Assistive device used: None Pre-test Oxygen Delivery Method Room Air Pulse Ox (%) 96 Pulse Rate (60-100 beats/min) 107 H Dyspnea Edd Scale (0-10) 0 Exertion Edd Scale (6-20) 6 1st minute Oxygen Delivery Method Room Air Pulse Ox (%) 97 Pulse Rate (60-100 beats/min) 115 H 2nd minute Oxygen Delivery Method Room Air Pulse Ox (%) 90 Pulse Rate (60-100 beats/min) 117 H 3rd minute Oxygen Delivery Method Room Air Pulse Ox (%) 91 Pulse Rate (60-100 beats/min) 115 H 4th minute Oxygen Delivery Method Room Air Pulse Ox (%) 91 Pulse Rate (60-100 beats/min) 111 H 5th minute Oxygen Delivery Method Room Air Pulse Ox (%) 91 Pulse Rate (60-100 beats/min) 121 H 6th minute Oxygen Delivery Method Room Air Pulse Ox (%) 91 Pulse Rate (60-100 beats/min) 119 H Dyspnea Edd Scale (0-10) 3 Exertion Edd Scale (6-20) 12 Post-test Oxygen Delivery Method Room Air Pulse Ox (%) 96 Pulse Rate (60-100 beats/min) 108 H Full Laps Walked 15 Partial Lap, Number of Tiles Walked 12 Total Distance Walked (ft) 897 06/23/20 12:17 Cardiopulmonary Services by Karo Naranjo Patient wears 1-2 lpm Oxygen at home when needed. Initialized on 06/23/20 12:17 - END OF NOTE - Interpretation Interpretation: The patient ambulated 897 feet over the course of 6 minutes beginning on room air without assistive devices or breaks. Pretesting oxygen saturation was noted to be 96% on room air. With ambulation, the [place] oxygen saturation was 90%. This represents a significant exertional oxygen desaturation, consistent with a pulmonary limitation to exercise tolerance. - Recommendations Recommendations: There is no indication for the use of supplemental oxygen at this time. However, close interval follow-up is recommended, given the degree of oxygen desaturation noted during the study.
== END ==
PROVIDERS: PCP Family Medicine; Referring Provider Nurse Practitioner Acute Care; Visit Provider Nurse Practitioner Acute Care
DX: J96.90 Respiratory failure, unspecified, unspecified whether with hypoxia or hypercapnia (principal)
CPT/HCPCS: 94618

== ENCOUNTER → 2023-06-16 | Outpatient (CLI) | payer MEDICARE, MEDICAID, SELFPAY ==
[2023-06-16 15:32] LABS: Absolute Lymphocyte Count 2.71 X10^3/uL (0.83-4.51); Basophil% 0.8 % (0-1); Eosinophil# 0.25 X10^3/uL; Eosinophils% 2.1 % (0-5); Hematocrit 42.8 % (37-47); Hemoglobin 12.7 g/dL (12.0-15.0); Lymphocyte # 2.71 X10^3/ul (0.83-4.51); Lymphocyte % 22.8 % (19-41); Mean Corp Hgb Conc 29.7 g/dL (32-36); Mean Corpuscular Hgb 27.3 pg (27.0-32.0); Mean Platelet Vol. 11.3 fl (6.2-12.0); Monocyte# 0.78 X10^3/uL; Monocyte% 6.5 % (0-10); NRBC Flagged by Analyzer 0 % (0-5); Neutrophil # 8.01 X10^3/uL (2.7-7.7); Neutrophil % 67.3 % (47-70); Platelet Count 303 K/mm3 (150-450); RBC Distribution Width CV 15.8 % (11.6-14.6); RBC Distribution Width SD 53.2 fl (35.1-43.9); Red Blood Count 4.65 M/mm3 (4.2-5.4); White Blood Count 11.9 K/mm3 (4.4-11.0)
[2023-06-16 15:56] LABS: Vitamin D,25 Hydroxy 11.4 ng/mL
[2023-06-16 16:13] LABS: ALB/GLOB Ratio 0.7 RATIO (0.9-2.4); AST(SGOT) 26 U/L (15-37); Alanine Aminotransfer ALT/SGPT 30 U/L (13-56); Albumin, Serum 3.1 g/dL (3.2-5.0); Alkaline Phosphatase 104 U/L (45-117); Anion Gap 10 (5-15); BUN 11 mg/dL (7-18); BUN/Creat Ratio 10.8 RATIO (10-20); Calcium,Total 8.8 mg/dL (8.5-10.1); Chloride 104 mmol/L (98-107); Cholesterol 218 mg/dL (200); Creatinine, Serum 1.02 mg/dL (0.55-1.02); EST Glomerular Filtration Rate 63 mL/min (>60); Est Glom Filt Rate - Afr Amer 76 mL/min (>60); Globulin 4.4 g/dL (2.2-4.2); Glucose 150 mg/dL (74-106); High Density Lipoprotein 35 mg/dL; Iron 79 ug/dL (50-170); Potassium 4.4 mmol/L (3.5-5.1); Protein, Total 7.5 g/dL (6.4-8.2); Sodium Level 133 mmol/L (136-145); Thyroid Stim Hormone (TSH) 3.14 uIU/mL (0.358-3.74); Triglycerides 406 mg/dL
[2023-06-19 13:51] LABS: Hemoglobin A1c 7.5 % (3.8-5.6)
== END | disposition home or self-care (01) ==
LOC: MTLAB 11:34
PROVIDERS: PCP Family Medicine; Referring Provider Family Medicine; Visit Provider Family Medicine
DX: N18.9 Chronic kidney disease, unspecified (principal); K21.9 Gastro-esophageal reflux disease without esophagitis; F32.A Depression, unspecified; Z13.220 Encounter for screening for lipoid disorders; E55.9 Vitamin D deficiency, unspecified; R73.09 Other abnormal glucose
CPT/HCPCS: 36415; 80053; 80061; 82306; 83036; 83540; 84443; 85025